=== PATIENT | female | born 1950 | race Caucasian/White ===

== ENCOUNTER 2022-10-31 11:54 | Emergency (ER) | payer OTHER ==
--- OUTSIDE RECORDS SUMMARY | 2022-10-31 11:56 | XMS REPORT | Continuity of Care Document ---
:1950 Author Organization [facility] t Address [address] [address] [place] [address] Care Team Providers Name Role Phone Rosemarie Roland MD Primary Care Physician [phone] HANK HORNE Attending Clinician Unavailable ROSEMARIE ROLAND Attending Clinician Unavailable DENNY TINOCO Attending Clinician Unavailable [id number] Attending Clinician Unavailable Hank Mao Attending Clinician Payers Payer Name Policy Type Policy Number Effective Date Expiration Date S lawanda [employer] 16 [id number] 2021 00:00:00 HMO-POS [employer]ET[employer] 2 [id number] 2020 00:00:00 MEDICARE-PART B 5 [id number] 2020 00:00:00 Problems Condition Condition Condition Status Onset Resolution Last Treating Co mments Source Name Details Category Date Date Treatment Clinician Date Prediabete Prediabete Disease Active Megan hernandez s - s - 10-29 Seybold Unchanged Unchanged 00:00: 00 Essential Essential Disease Active Doc durbin hypertensi hypertensi 12-28 Se ybold on - on - 00:00: Controlled Controlled 00 Hypothyroi Hypothyroi Disease Active Megan hernandez dism dism 12-28 Seybold 00:00: 00 Allergies, Adverse Reactions, Alerts This patient has no known allergies or adverse reactions. Social History Social Habit Start Date Stop Date Quantity Comments Source Exposure to Not sure Radha dangelo SARS-CoV-2 (event) Tobacco use and 2020-12-28 2020-12-28 Smokeless tobacco Garry musa Seybold exposure 00:00:00 00:00:00 non-user Sex [birth year] Radha gee 00:00:00 00:00:00 Smoking Status Start Date Stop Date Source Never smoked tobacco Radha Talamantes old Medications Ordered Filled Start Stop Current Ordering Indication Dosage Frequency Signature Comments Components Source Medication Medication Date Date Medication? Clinician (SIG) Name Name Cholecalcif Yes 25U Take 25 Doc sey daniel 5-02 units by Seybold (Vitamin D) 09:02: mouth 25 MCG 21 daily (1000 UT) oral Tablet Vitamin K Yes 100ug Take 100 Doc sey 100 MCG 5-02 mcg by Seybold oral Tablet 09:02: mouth 21 daily Trazodone Yes [id number] 50mg QD TAKE 1 K elsey HCl 50 MG 2-09 TABLET (50 Seyb old oral Tablet 00:00: MG TOTAL) 00 BY MOUTH NIGHTLY NEEDED FOR SLEEP Cholecalcif 2020-06 Yes 25U Take 25 Doc sey daniel 1-23 units by Seybold (Vitamin D) 10:34: mouth 25 MCG 46 daily (1000 UT) oral Tablet Vitamin K 2020-06 Yes 100ug Take 100 Doc sey 100 MCG 1-23 mcg by Seybold oral Tablet 10:34: mouth 46 daily Miconazole 2020-06 Yes [id number] Apply 1 Radha Nitrate 2 % 0-27 applicatio Se ybold apply 00:00: n externally 00 topically Aero Powd 2 times daily Naftifine 2020-06 Yes [id number] Apply 1 Radha HCl 2 % 0-27 applicatio Seybol d apply 00:00: n externally 00 topically Cream daily Miconazole 2020-06- No [id number] Apply 1 Radha Nitrate 2 % 0-27 05-02 applicatio S eybold apply 00:00: 00:00 n externally 00 :00 topically Aero Powd 2 times daily Naftifine 2020-06- No [id number] Apply 1 Radha HCl 2 % 0-27 05-02 applicatio Seybo ld apply 00:00: 00:00 n externally 00 :00 topically Cream daily Cholecalcif 2020-06 Yes 25U Take 25 Doc sey daniel 0-26 units by Seybold (Vitamin D) 10:05: mouth 25 MCG 05 daily (1000 UT) oral Tablet Vitamin K 2020-06 Yes 100ug Take 100 Doc sey 100 MCG 0-26 mcg by Seybold oral Tablet 10:05: mouth 05 daily Dicyclomine 2020-06 Yes [id number] 10mg Q.25D Take 1 Radha HCl 10 MG 0-26 capsule Seybold oral 00:00: (10 mg Capsule 00 total) by mouth 4 times daily as needed Terbinafine 2020-06 Yes [id number] Apply to Radha HCl does 0-26 affected Seybold not apply 00:00: area 2 Powder 00 times daily for 2-4 weeks Fluconazole 2020-06 Yes [id number] 50mg Take 1 Radha 50 MG oral 0-26 tablet (50 Sey bold Tablet 00:00: mg total) 00 by mouth daily Nitrofurant 2020-06 Yes [id number] 100mg Take 1 Radha oin Monohyd 0-26 capsule Seybo ld Macro 00:00: (100 mg (Macrobid) 00 total) by 100 MG oral mouth 2 Capsule times daily Phenazopyri 2020-06 Yes [id number] 200mg Q.[id number] Take 1 Radha dine HCl 0-26 [id number] tablet Sey bold 200 MG oral 00:00: 3D (200 mg Tablet 00 total) by mouth 3 times daily as needed for pain Dicyclomine 2020-06 Yes [id number] 10mg Q.25D Take 1 Radha HCl 10 MG 0-26 capsule Seybold oral 00:00: (10 mg Capsule 00 total) by mouth 4 times daily as needed Terbinafine 2020-06 Yes [id number] Apply to Radha HCl does 0-26 affected Seybold not apply 00:00: area 2 Powder 00 times daily for 2-4 weeks Fluconazole 2020-06 Yes [id number] 50mg Take 1 Radha 50 MG oral 0-26 tablet (50 Sey bold Tablet 00:00: mg total) 00 by mouth daily Nitrofurant 2020-06 Yes [id number] 100mg Take 1 Radha oin Monohyd 0-26 capsule Seybo ld Macro 00:00: (100 mg (Macrobid) 00 total) by 100 MG oral mouth 2 Capsule times daily Phenazopyri 2020-06 Yes [id number] 200mg Q.[id number] Take 1 Radha dine HCl 0-26 [id number] tablet Sey bold 200 MG oral 00:00: 3D (200 mg Tablet 00 total) by mouth 3 times daily as needed for pain Dicyclomine 2020-06 Yes [id number] 10mg Q.25D Take 1 Radha HCl 10 MG 0-26 capsule Seybold oral 00:00: (10 mg Capsule 00 total) by mouth 4 times daily as needed Fluconazole 2020-06 Yes Radha 100 MG oral 0-26 Seybold Tablet 00:00: 00 Phenazopyri 2020-06 Yes Radha dine HCl 0-26 Seybold 100 MG oral 00:00: Tablet 00 Fluconazole 2020-06- No [id number] 50mg Take 1 Radha 50 MG oral 0-26 05-02 tablet (50 Se ybold Tablet 00:00: 00:00 mg total) 00 :00 by mouth daily Nitrofurant 2020-06- No [id number] 100mg Take 1 Radha oin Monohyd 0-26 05-02 capsule Seyb old Macro 00:00: 00:00 (100 mg (Macrobid) 00 :00 total) by 100 MG oral mouth 2 Capsule times daily Phenazopyri 2020-06- No [id number] 200mg Q.[id number] Take 1 Radha dine HCl 0-26 05-02 [id number] tablet Se ybold 200 MG oral 00:00: 00:00 3D (200 mg Tablet 00 :00 total) by mouth 3 times daily as needed for pain Fluconazole 2020-06- No Kelse y 100 MG oral 0-26 05-02 Seybold Tablet 00:00: 00:00 00 :00 Phenazopyri 2020-06- No Kelse y dine HCl 0-26 05-02 Seybold 100 MG oral 00:00: 00:00 Tablet 00 :00 Terbinafine 2020-06- No [id number] Apply to Radha HCl does 0-26 05-02 affected Seybol d not apply 00:00: 00:00 area 2 Powder 00 :00 times daily for 2-4 weeks Fluconazole 2020-06- No [id number] 150mg Take 1 Radha 150 MG oral 0-26 10-27 tablet Seybo ld Tablet 00:00: 04:59 (150 mg 00 :00 total) by mouth once for 1 dose Trazodone 2020-06 Yes [id number] 50mg QD Take 1 K elsey HCl 50 MG 0-15 tablet (50 Seyb old oral Tablet 00:00: mg total) 00 by mouth nightly as needed for sleep Trazodone 2020-06 Yes [id number] 50mg QD Take 1 K elsey HCl 50 MG 0-15 tablet (50 Seyb old oral Tablet 00:00: mg total) 00 by mouth nightly as needed for sleep Nystatin 2020- No [id number] Apply to Radha [id number] 8-20 10- affected Seybold UNIT/GM 00:00: 00:00 are twice apply 00 :00 a day externally Cream Ipratropium Yes 1{puff} Q4H Inhale 1 Radha -Albuterol 7-19 puff into Seyb old (Combivent 00:00: the lungs Respimat) 00 every 4 20-100 hours as MCG/ACT needed for inhalation shortness aerosol of breath inhaler Ipratropium Yes 1{puff} Q4H Inhale 1 Radha -Albuterol 7-19 puff into Seyb old (Combivent 00:00: the lungs Respimat) 00 every 4 20-100 hours as MCG/ACT needed for inhalation shortness aerosol of breath inhaler Ipratropium 2021- No 1{puff} Q4H Inhale 1 Radha -Albuterol 7-19 05-02 puff into Sey bold (Combivent 00:00: 00:00 the lungs Respimat) 00 :00 every 4 20-100 hours as MCG/ACT needed for inhalation shortness aerosol of breath inhaler Amlodipine Yes [id number] 5mg Take 1 K elsey Besylate 5 7- tablet (5 Seyb old MG oral 00:00: mg total) Tablet 00 by mouth daily hydrOXYzine Yes [id number] 25mg Q.[id number] Take 1 Radha HCl 25 MG 7- [id number] tablet (25 Seybold oral Tablet 00:00: 3D mg total) 00 by mouth 3 times daily as needed for itching Liothyronin 0 Yes [id number] 5ug Take 1 Radha e Sodium 5 7-01 tablet (5 Seyb old MCG oral 00:00: mcg total) Tablet 00 by mouth daily Levothyroxi 2020-0 Yes [id number] 125ug Take 1 Radha ne Sodium 7-01 tablet Seybold (Synthroid) 00:00: (125 mcg 125 MCG 00 total) by oral Tablet mouth daily Temazepam 2020-0 Yes [id number] 7.5mg QD Take 1 Radha 7.5 MG oral 7-01 capsule Seybo ld Capsule 00:00: (7.5 mg 00 total) by mouth nightly as needed for sleep Amlodipine 0 Yes [id number] 5mg Take 1 K elsey Besylate 5 7-01 tablet (5 Seyb old MG oral 00:00: mg total) Tablet 00 by mouth daily hydrOXYzine Yes [id number] 25mg Q.[id number] Take 1 Radha HCl 25 MG 7-01 [id number] tablet (25 Seybold oral Tablet 00:00: 3D mg total) 00 by mouth 3 times daily as needed for itching Liothyronin Yes [id number] 5ug Take 1 Radha e Sodium 5 7-01 tablet (5 Seyb old MCG oral 00:00: mcg total) Tablet 00 by mouth daily Levothyroxi 2020-0 Yes [id number] 125ug Take 1 Radha ne Sodium 7-01 tablet Seybold (Synthroid) 00:00: (125 mcg 125 MCG 00 total) by oral Tablet mouth daily Temazepam 2020-0 Yes [id number] 7.5mg QD Take 1 Radha 7.5 MG oral 7-01 capsule Seybo ld Capsule 00:00: (7.5 mg 00 total) by mouth nightly as needed for sleep Liothyronin 0 Yes [id number] 5ug Take 1 Radha e Sodium 5 7-01 tablet (5 Seyb old MCG oral 00:00: mcg total) Tablet 00 by mouth daily Levothyroxi 2020-0 Yes [id number] 125ug Take 1 Radha ne Sodium 7-01 tablet Seybold (Synthroid) 00:00: (125 mcg 125 MCG 00 total) by oral Tablet mouth daily Amlodipine 2021- No [id number] 5mg Take 1 Radha Besylate 5 12-28 tablet (5 Sey bold MG oral 00:00: 00:00 mg total) Tablet 00 :00 by mouth daily hydrOXYzine 2021- No [id number] 25mg Q.[id number] Take 1 Radha HCl 25 MG 12-28 [id number] tablet (25 Seybold oral Tablet 00:00: 00:00 3D mg total) 00 :00 by mouth 3 times daily as needed for itching Temazepam 2021- No [id number] 7.5mg QD Take 1 Radha 7.5 MG oral 12-28 capsule Seyb old Capsule 00:00: 00:00 (7.5 mg 00 :00 total) by mouth nightly as needed for sleep Immunizations Ordered Immunization Filled Immunization Date Status Commen Source Name Name Pneumococcal Vaccine, 2018-06-17 Completed Doc sey Seybold Polysaccharide 00:00:00 Pneumococcal Vaccine, 2018-06-17 Completed Doc sey Seybold Polysaccharide 00:00:00 Pneumococcal Vaccine, 2018-06-17 Completed Doc sey Seybold Polysaccharide 00:00:00 Tdap- (Boostrix, 2017-12-25 Completed Radha Rodriguez eybomaria [place] carmen Adacel) 00:00:00 Tdap- (Boostrix, 2017-12-25 Completed Radha Rodriguez eybold Adacel) 00:00:00 Tdap- (Boostrix, 2017-12-25 Completed Radha Rodriguez eybomaria [place] carmen Adacel) 00:00:00 Vital Signs Vital Name Observation Time Observation Value Comments Source Systolic blood pressure 2021-10-29 13:57:00 138 mm[Hg] Radha Seybold Diastolic blood 2021-10-29 13:57:00 64 mm[Hg] Kelse y Seybold pressure Heart rate 2021-10-29 13:57:00 60 /min Radha S eybomaria [place] carmen Body temperature 2021-10-29 13:57:00 36.17 Jacy Krys ey Seybold Respiratory rate 2021-10-29 13:57:00 14 /min Krys ey Seybold Body height 2021-10-29 13:57:00 167.6 cm Radha Rodriguez eybold Body weight 2021-10-29 13:57:00 75.751 kg Radha Rodriguez eybold BMI 2021-10-29 13:57:00 26.95 kg/m2 Radha Rodriguez eybold Heart rate 2021-05-22 16:29:00 68 /min Radha Rodriguez eybold Body temperature 2021-05-22 16:29:00 36.28 Jacy Krys ey Seybold Respiratory rate 2021-05-22 16:29:00 14 /min Krys ey Seybold Body height 2021-05-22 16:29:00 167.6 cm Radha Rodriguez eybold Body weight 2021-05-22 16:29:00 80.74 kg Radha Rodriguez eybold BMI 2021-05-22 16:29:00 28.73 kg/m2 Radha Rodriguez eybold Systolic blood pressure 2021-05-22 16:29:00 164 mm[Hg] Radha Seybold Diastolic blood 2021-05-22 16:29:00 70 mm[Hg] Kelse y Seybold pressure Systolic blood pressure 2021-04-24 15:04:00 142 mm[Hg] Radha Seybold Diastolic blood 2021-04-24 15:04:00 79 mm[Hg] Kelse y Seybold pressure Heart rate 2021-04-24 15:04:00 62 /min Radha Rodriguez eybold Body temperature 2021-04-24 15:04:00 36.83 Jacy Krys ey Seybold Respiratory rate 2021-04-24 15:04:00 14 /min Krys ey Seybold Body height 2021-04-24 15:04:00 167.6 cm Radha Rodriguez eybold Body weight 2021-04-24 15:04:00 82.645 kg Radha Rodriguez eybold BMI 2021-04-24 15:04:00 29.41 kg/m2 Radha Rodriguez eybold Procedures Procedure Date / Time Performed Performing Clinician Sourc e URINALYSIS NONAUTO W/O 2021-04-24 15:23:00 Hank Horne y Seybold SCOPE Encounters Start End Encounter Admission Attending Care Care Encounter Source Date/Time Date/Time Type Type Clinicians Facility Department ID 2022-11-05 2022-11-05 Outpatient COLEEN RADHA DOTSON [id number] Radha 10:30:00 10:30:00 HANK Seybol d 2022-10-25 2022-10-25 Outpatient RADHA ROLAND [id number] Radha 00:00:00 00:00:00 ROSEMARIE Seybol d 2022-10-21 2022-10-21 Outpatient RADHA ROLAND [id number] Radha 00:00:00 00:00:00 ROSEMARIE Seybol d 2022-10-21 2022-10-21 Outpatient RADHA HORNE [id number] Radha 00:00:00 00:00:00 HANK Seybol d 2022-09-03 2022-09-03 Outpatient RADHA HORNE [id number] Radha 00:00:00 00:00:00 HANK Seybol d 2022-07-03 2022-07-03 Outpatient RADHA HORNE [id number] Radha 00:00:00 00:00:00 HANK Seybol d 2022-03-25 2022-03-25 Outpatient RADHA HORNE [id number] Radha 00:00:00 00:00:00 HANK Seybol d 2021-12-24 2021-12-24 Outpatient RADHA TINOCO [id number] Radha 10:45:00 10:45:00 DENNY Seybol d 2021-10-30 2021-10-30 Outpatient RADHA HORNE [id number] Radha 00:00:00 00:00:00 HANK Seybol d 2021-10-29 2021-10-29 Outpatient LAB90 RADHA DOTSON [id number] Radha 10:15:00 10:15:00 Seybol d 2021-10-29 2021-10-29 Office Reg Horne [id number] Radha 09:00:00 10:00:00 Visit Hank Rodas [id number] Se marlen [id number] 2021-08-08 2021-08-08 Outpatient RADHA ROLAND [id number] Radha 00:00:00 00:00:00 ROSEMARIEMADDY Talamantesol d 2021-05-22 2021-05-22 Outpatient LAB90 RADHA DOTSON [id number] Radha 11:15:00 11:15:00 Seybol d 2021-05-22 2021-05-22 Office Reg Horne [id number] Radha 10:30:00 11:00:00 Visit Hankrandi Rodas [id number] Se marlen [id number] 2021-04-25 2021-04-25 Outpatient RADHA ROLAND [id number] Radha 00:00:00 00:00:00 ROSEMARIE Talamantesol loreto 2021-04-24 2021-04-24 Office Reg Horne [id number] Radha 09:55:03 10:25:03 Visit Hank Rodas [id number] Se ritaoliver [id number] 2021-02-15 2021-02-15 Outpatient RADHA ROLAND [id number] Radha 00:00:00 00:00:00 ROSEMARIE Talamantesol loreto 2021-01-04 2021-01-04 Outpatient RADHA ROLAND [id number] Radha 14:00:00 14:00:00 ROSEMARIE dangelo Results Test Description Test Time Test Comments Results Result Comments Source URINALYSIS NONAUTO W/O SCOPE 2021-04-24 15:23:00 Test Item Value Reference Range Interpretation Comme nts UD KETONES (test code = neg 5-160 927843) UD GLUCOSE (test code = neg 100-2000 948277) UD PROTEIN (test code = trace Trace - 2000 mg/dL 217694) UD LEUKOCYTES (test code = LG Trace - Large @ 2 581307) min. UD NITRITE (test code = NEG Neg. - Pos. @ 60 287942) sec. UD UROBILINOGEN (test code = 0.2 mg/dL 0.2-8 228446) UD PH (test code = 017172) See_Comment [Automated message] The system which ge nerated this result tra nsmitted reference range : 5.0 - 8.5 @ 60 sec.. The reference range was not used to interpr et this result as normal/abnormal . UD BLOOD (test code = 831931) MOD Neg. - Large @ 60 sec. UD SPECIFIC GRAVITY (test See_Comment [ Automated message] The code = 971132) system which generated this result tra nsmitted reference range : 1.000 - 1.030 @ 45 sec. . The reference range was not used to interpr et this result as normal/abnormal . UD BILIRUBIN (test code = NEG Neg. - Large @ 45 048616) sec. Lab Interpretation (test code Abnormal = 59989-9) Radha Mcbride
[2022-10-31] MEDS ORDERED: BACI/NEOMYCIN/POLY OINT 15GM TOP ONE (12:45)
[2022-10-31] MEDS ORDERED: MORPHINE 2 MG/ML SYR ONE ×2 (12:45→14:16)
[2022-10-31] MEDS ORDERED: KETOROLAC 30 MG/ML INJ ONE (12:45)
[2022-10-31] MEDS ORDERED: ONDANSETRON 4 MG/2 ML VIAL ONE (12:46)
[2022-10-31] MEDS ORDERED: TETANUS & DIPHTHERIA TOX,ADULT 0.5 ML VIAL ONE (12:46)
--- NOTE | 2022-10-31 13:26 | RAD REPORT ---
EXAM DESCRIPTION: CT - Head C Spine Cap Wo Con - 10/31/2022 12:56 pm CLINICAL HISTORY: Trauma, head and neck injury. Chest, abdomen and pelvis pain. PAIN COMPARISON: No comparisons TECHNIQUE: CT head without contrast. CT cervical spine without contrast with coronal and sagittal reformatted images. CT chest, abdomen and pelvis without contrast with coronal and sagittal reformatted images of the [facility] [place]. All CT scans are performed using dose optimization technique as appropriate and may include automated exposure control or mA/KV adjustment according to patient size. FINDINGS: CT HEAD WITHOUT CONTRAST: No intracranial hemorrhage, hydrocephalus or extra-axial fluid collection. Moderate brain atrophy not ed. No areas of brain edema or midline shift. The paranasal sinuses and mastoids are clear. The calvarium is intact. CT CERVICAL SPINE WITHOUT CONTRAST: No fracture or subluxation. The prevertebral soft tissues are normal in thickness. CT CHEST, ABDOMEN, PELVIS WITHOUT CONTRAST: NOTE: Lack of contrast is a significant limitation in the assessment of trauma related findings. Spec ifically, solid organ, vascular and bowel evaluation is significantly limited. The lungs are clear.No pneumothorax or pericardial/pleural fluid. Postsurgical changes are present ab out the stomach. Cholecystectomy clips. No evidence of intra-abdominal visceral injury, free fluid or free air is seen within the above detai led limitations. Right kidney is located in the pelvis, normal variant anatomy. Mild sigmoid divertic ulosis without diverticulitis. No concerning pelvic findings. No fractures. IMPRESSION: Negative for acute traumatic findings within the above detailed limitations.
--- NOTE | 2022-10-31 13:32 | RAD REPORT ---
EXAM DESCRIPTION: RAD - Wrist Right 3 View - 10/31/2022 1:24 pm CLINICAL HISTORY: PAIN Pain COMPARISON: <Comparisons> FINDINGS: Diffuse osteopenia is seen. Mild soft tissue swelling is seen along the dorsum of the wris t. No acute fracture evident.
--- NOTE | 2022-10-31 13:33 | RAD REPORT ---
EXAM DESCRIPTION: RAD - Ankle Right 3 View - 10/31/2022 1:24 pm CLINICAL HISTORY: PAIN COMPARISON: <Comparisons> FINDINGS: There is a large posterior calcaneal spur. Mild soft tissue swelling is seen particularly lateral malleolus where there may be a small avulsion fracture. No dislocation.
--- NOTE | 2022-10-31 13:34 | RAD REPORT ---
EXAM DESCRIPTION: RAD - Foot Left 3 View - 10/31/2022 1:24 pm CLINICAL HISTORY: PAIN COMPARISON: <Comparisons> FINDINGS: Examination is limited by patient positioning. Small calcaneal spurs. Diffuse osteopenia. No gross fracture appreciated.
--- NOTE | 2022-10-31 13:35 | RAD REPORT ---
EXAM DESCRIPTION: RAD - Knee Left 3 View - 10/31/2022 1:24 pm CLINICAL HISTORY: PAIN COMPARISON: No comparisons FINDINGS: Diffuse osteopenia is seen. Moderate joint effusion. Linear defect in the lateral aspect o f the patella likely patella fracture.
--- NOTE | 2022-10-31 13:37 | RAD REPORT ---
EXAM DESCRIPTION: RAD - Pelvis - 10/31/2022 1:24 pm CLINICAL HISTORY: PAIN COMPARISON: <Comparisons> FINDINGS: Diffuse osteopenia is seen. No fracture, dislocation or AVN pattern.
[2022-10-31 13:50] LABS: Absolute Lymphocytes (CBC) 2.2 K/uL (0.7-4.9); Hematocrit 39.8 % (36.0-45.0); Lymphocytes % 25.6 % (15.3-44.8); MCV 78.7 fL (80-100); MPV 8.4 fL (7.6-11.3); RBC Red Blood Cell Count 5.06 M/uL (3.86-4.86)
--- NOTE | 2022-10-31 13:56 | EDPHYS ---
Physician Documentation [facility] Name: Mayuri Barkley Age: 72 yrs Sex: Female : 1950 Arrival Date: 10/31/2022 Time: 11:54 Bed 7 Private MD: ED Physician Cayetano Salazar HPI: 10/31 13:30 This 72 yrs old Female presents to ER via EMS with complaints of Fall Injury. kelsie 13:30 Details of fall: The patient fell from an upright position, while walking. Onset: The kelsie symptoms/episode began/occurred just prior to arrival. Associated injuries: The patient sustained injury to the head, abrasion, contusion. Severity of symptoms: At their worst the symptoms were mild. Historical: - Allergies: 12:22 No Known Allergies; ko1 - PMHx: 12:23 Hypothyroidism; ko1 - Immunization history:: Adult Immunizations up to date. - Social history:: Smoking status: Patient denies any tobacco usage or history of. ROS: 13:35 Constitutional: Negative for fever, chills, and weight loss, Eyes: Negative for injury, kelsie pain, redness, and discharge, ENT: Negative for injury, pain, and discharge, Neck: Negative for injury, pain, and swelling, Cardiovascular: Negative for chest pain, palpitations, and edema, Respiratory: Negative for shortness of breath, cough, wheezing, and pleuritic chest pain, Abdomen/GI: Negative for abdominal pain, nausea, vomiting, diarrhea, and constipation, Back: Negative for injury and pain, : Negative for injury, bleeding, discharge, and swelling, Skin: Negative for injury, rash, and discoloration, Neuro: Negative for headache, weakness, numbness, tingling, and seizure, Psych: Negative for depression, anxiety, suicide ideation, homicidal ideation, and hallucinations, Allergy/Immunology: Negative for hives, rash, and allergies, Endocrine: Negative for neck swelling, polydipsia, polyuria, polyphagia, and marked weight changes, Hematologic/Lymphatic: Negative for swollen nodes, abnormal bleeding, and unusual bruising. 13:35 MS/extremity: Positive for decreased range of motion, pain, of the right leg and left leg. Exam: 13:35 Constitutional: This is a well developed, well nourished patient who is awake, alert, kelsie and in no acute distress. Head/Face: Normocephalic, atraumatic. Eyes: Pupils equal round and reactive to light, extra-ocular motions intact. Lids and lashes normal. Conjunctiva and sclera are non-icteric and not injected. Cornea within normal limits. Periorbital areas with no swelling, redness, or edema. ENT: Nares patent. No nasal discharge, no septal abnormalities noted. Tympanic membranes are normal and external auditory canals are clear. Oropharynx with no redness, swelling, or masses, exudates, or evidence of obstruction, uvula midline. Mucous membranes moist. Neck: Trachea midline, no thyromegaly or masses palpated, and no cervical lymphadenopathy. Supple, full range of motion without nuchal rigidity, or vertebral point tenderness. No Meningismus. Chest/axilla: Normal chest wall appearance and motion. Nontender with no deformity. No lesions are appreciated. Cardiovascular: Regular rate and rhythm with a normal S1 and S2. No gallops, murmurs, or rubs. Normal PMI, no JVD. No pulse deficits. Respiratory: Lungs have equal breath sounds bilaterally, clear to auscultation and percussion. No rales, rhonchi or wheezes noted. No increased work of breathing, no retractions or nasal flaring. Abdomen/GI: Soft, non-tender, with normal bowel sounds. No distension or tympany. No guarding or rebound. No evidence of tenderness throughout. Back: No spinal tenderness. No costovertebral tenderness. Full range of motion. Skin: Warm, dry with normal turgor. Normal color with no rashes, no lesions, and no evidence of cellulitis. Neuro: Awake and alert, GCS 15, oriented to person, place, time, and situation. Cranial nerves II-XII grossly intact. Motor strength 5/5 in all extremities. Sensory grossly intact. Cerebellar exam normal. Normal gait. Psych: Awake, alert, with orientation to person, place and time. Behavior, mood, and affect are within normal limits. 13:35 Musculoskeletal/extremity: Extremities: grossly normal except: noted in the left knee: decreased ROM, pain, noted in the right ankle: decreased ROM, pain. Vital Signs: 12:19 BP 194 / 75; Pulse 65; Resp 18; Temp 98; Pulse Ox 100% ; ko1 12:38 BP 191 / 73; Pulse 55; Resp 18; Pulse Ox 100% on R/A; ld1 13:00 BP 178 / 82; Pulse 68; Resp 18; Pulse Ox 99% ; ko1 [place] Coma Score: 13:37 Eye Response: spontaneous(4). Motor Response: obeys commands(6). Verbal Response: kelsie oriented(5). Total: 15. 13:37 Eye Response: spontaneous(4). Motor Response: obeys commands(6). Verbal Response: kelsie oriented(5). Total: 15. MDM: 12:21 Patient medically screened. kelsie 13:37 Differential diagnosis: dislocation, closed fracture, contusion, abrasion, tendonitis, kelsie fracture, sprain, arthritis. Differential diagnosis: abrasion, closed head injury, contusion, fracture, sprain, strain. Data reviewed: vital signs, nurses notes, lab test result(s), CBC, electrolytes, hepatic panel, radiologic studies. Consideration of Admission/Observation Escalation of care including admission/observation considered. Independent interpretation of the following test(s) in the Emergency Department X-Ray: My interpretation is multiple xrays. Test considered but Not performed: CT: no ct of joints. Care significantly affected by the following chronic conditions: hypothyroidism. Counseling: I had a detailed discussion with the patient and/or guardian regarding: the historical points, exam findings, and any diagnostic results supporting the discharge/admit diagnosis, lab results, radiology results, the need for outpatient follow up, for definitive care, a family practitioner, a orthopedic surgeon. 10/31 12:32 Order name: CBC with Diff; Complete Time: 13:54 [facility] 10/31 12:32 Order name: Comprehensive Metabolic Panel [facility] 10/31 12:32 Order name: CT Traumagram (Head C Spine CAP wo con); Complete Time: 13:29 [facility] 10/31 12:32 Order name: Wrist Right 3 View XRAY; Complete Time: 13:54 [facility] 10/31 12:32 Order name: Knee Left 3 View XRAY; Complete Time: 13:54 [facility] 10/31 12:32 Order name: Foot Left 3 View XRAY; Complete Time: 13:54 [facility] 10/31 12:32 Order name: Ankle Right 3 View XRAY; Complete Time: 13:54 [facility] 10/31 12:32 Order name: Pelvis XRAY; Complete Time: 13:54 [facility] 10/31 12:35 Order name: Ice pack; Complete Time: 12:40 kelsie Administered Medications: 12:50 Drug: Tetanus Toxoid,Adsorbed IM 0.5 ml {Manager Of Maintenance: [place]. Exp: 12/08/2023. ko1 Lot #: [id number]. } Route: IM; Site: left deltoid; 13:47 Drug: Qgxzyxcu-Wqlzjobybb-Eiijbivdq Topical Ointment 1 application Route: Topical; ko1 Site: affected area; 13:48 Drug: Ketorolac IVP 30 mg Route: IVP; Site: right antecubital; ko1 13:48 Drug: Ondansetron IVP 4 mg Route: IVP; Site: right antecubital; ko1 13:48 Drug: morphine IVP or IV 2 mg Route: IVP; Infused Over: 4 mins; Site: right antecubital;ko1 14:09 Drug: morphine IVP or IV 2 mg Route: IVP; Infused Over: 4 mins; Site: right antecubital;ko1 14:24 Drug: Famotidine IVP 20 mg Route: IVP; Site: right antecubital; ld1 Disposition Summary: 10/31/22 13:55 Discharge Ordered Location: Home kelsie Problem: new kelsie Symptoms: have improved kelsie Condition: Stable kelsie Diagnosis - Fall on same level, unspecified kelsie - Displaced fracture of lateral malleolus of right fibula - avulsion kelsie - Fracture of patella kelsie - Unspecified injury of head, initial encounter kelsie - Abrasion of nose - Bridge kelsie Followup: kelsie - With: Private Physician - When: 2 - 3 days - Reason: Recheck today's complaints, Continuance of care, Re-evaluation by your physician Followup: kelsie - With: - When: 2 - 3 days - Reason: Recheck today's complaints, Re-evaluation by your physician Discharge Instructions: - Discharge Summary Sheet kelsie - Nondisplaced Fibular Ankle Fracture Treated With Immobilization kelsie - Head Injury, Adult kelsie - Fall Prevention in the Home, Adult kelsie - Patellar Fracture, Adult kelsie - Head Injury, Adult, [id number] kelsie Forms: - Medication Reconciliation Form kelsie - Thank You Letter kelsie - Antibiotic Education kelsie - Prescription Opioid Use kelsie Prescriptions: - acetaminophen-codeine 300-30 mg Oral tablet - take 2 tablet by ORAL route every 6 hours as needed for pain; 24 tablet; kelsie Refills: 0, Product Selection Permitted - Valium 2 mg Oral Tablet - take 1 tablet by ORAL route every 8 hours As needed; 20 tablet; Refills: 0, kelsie Product Selection Permitted - Diclofenac Sodium 75 mg Oral tablet,delayed release (DR/EC) - take 1 tablet by ORAL route 2 times per day; 14 tablet; Refills: 0, Product kelsie Selection Permitted Signatures: Dispatcher [employer] Cayetano Piña MD MD cha Sims, Lauren RN RN ld1 Jordana Resendiz RN RN ko1
--- NOTE | 2022-10-31 13:56 | ER ---
Nurse's Notes [facility] Name: Mayuri Barkley Age: 72 yrs Sex: Female : 1950 Arrival Date: 10/31/2022 Time: 11:54 Bed 7 Private MD: Diagnosis: Fall on same level, unspecified;Displaced fracture of lateral malleolus of right fibula-avulsion;Fracture of patella;Unspecified injury of head, initial encounter;Abrasion of nose-Bridge Presentation: 10/31 12:19 Chief complaint: EMS states: patient fell when coming out of the eye dr office, no loc, ko1 no blood thinners. Complains of pain to right ankle, left foot and right arm. Coronavirus screen: At this time, the client does not indicate any symptoms associated with coronavirus-19. Ebola Screen: No symptoms or risks identified at this time. Initial Sepsis Screen: Does the patient meet any 2 criteria? No. Patient's initial sepsis screen is negative. Does the patient have a suspected source of infection? No. Patient's initial sepsis screen is negative. Risk Assessment: Do you want to hurt yourself or someone else? Patient reports no desire to harm self or others. Onset of symptoms. 12:19 Method Of Arrival: EMS: [facility] ko1 12:19 Acuity: SANDY 3 ko1 Triage Assessment: 12:23 General: Appears uncomfortable, Behavior is calm, cooperative, appropriate for age. ko1 Pain: Complains of pain in right ankle. Historical: - Allergies: 12:22 No Known Allergies; ko1 - PMHx: 12:23 Hypothyroidism; ko1 - Immunization history:: Adult Immunizations up to date. - Social history:: Smoking status: Patient denies any tobacco usage or history of. Screenin:00 [facility] ED Fall Risk Assessment (Adult) History of falling in the last 3 months, ko1 including since admission Yes- single mechanical fall (1 pt) Confusion or Disorientation No (0 pts) Intoxicated or Sedated No (0 pts) Impaired Gait No (0 pts) Mobility Assist Device Used No (0 pt) Altered Elimination No (0 pt) Score/Fall Risk Level 0 - 2 = Low Risk Oriented to surroundings, Maintained a safe environment, Educated pt \T\ family on fall prevention, incl call for assistance when getting out of bed, Assessed \T\ reinforced patient's understanding of fall precautions, Provided non-skid footwear, Hourly rounding (assess needs \T\ fall precautionary measures) done, Used ambulatory aids as needed (educated on \T\ assisted with), Used gait belt as appropriate. Abuse screen: Denies threats or abuse. Denies injuries from another. Nutritional screening: No deficits noted. Tuberculosis screening: No symptoms or risk factors identified. Assessment: 13:00 General: Appears distressed, uncomfortable, Behavior is cooperative, appropriate for ko1 age, anxious. Pain: Complains of pain in left knee and left leg and right leg and right ankle. Neuro: No deficits noted. Cardiovascular: No deficits noted. Respiratory: No deficits noted. GI: No deficits noted. : No deficits noted. EENT: No deficits noted. Derm: No deficits noted. Musculoskeletal: Circulation, motion, and sensation intact. Injury Description: Abrasion sustained to left knee. Vital Signs: 12:19 BP 194 / 75; Pulse 65; Resp 18; Temp 98; Pulse Ox 100% ; ko1 12:38 BP 191 / 73; Pulse 55; Resp 18; Pulse Ox 100% on R/A; ld1 13:00 BP 178 / 82; Pulse 68; Resp 18; Pulse Ox 99% ; ko1 [place] Coma Score: 13:37 Eye Response: spontaneous(4). Motor Response: obeys commands(6). Verbal Response: kelsie oriented(5). Total: 15. 13:37 Eye Response: spontaneous(4). Motor Response: obeys commands(6). Verbal Response: kelsie oriented(5). Total: 15. ED Course: 12:07 Patient arrived in ED. aa5 12:21 Cayetano Salazar MD is Attending Physician. kelsie 12:22 Triage completed. ko1 12:23 Arm band placed on left wrist. Patient placed in an exam room, Patient notified of wait ko1 time. 12:34 Jordana Resendiz, JUSTIN is Primary Nurse. ko1 12:58 CT Traumagram (Head C Spine CAP wo con) In Process Unspecified. EDMS 13:00 Patient has correct armband on for positive identification. Fall risk band placed. Bed ko1 in low position. Call light in reach. Side rails up X2. environmental monitoring specialist on. Pulse ox on. NIBP on. Door closed. Noise minimized. Lights dimmed. Warm blanket given. Pillow given. 13:00 No provider procedures requiring assistance completed. ko1 13:26 Wrist Right 3 View XRAY In Process Unspecified. EDMS 13:26 Knee Left 3 View XRAY In Process Unspecified. EDMS 13:26 Foot Left 3 View XRAY In Process Unspecified. EDMS 13:26 Ankle Right 3 View XRAY In Process Unspecified. EDMS 13:26 Pelvis XRAY In Process Unspecified. EDMS 13:45 Inserted saline lock: 20 gauge in right antecubital area, using aseptic technique. ko1 Blood collected. 13:48 CBC with Diff Sent. ko1 13:48 Comprehensive Metabolic Panel Sent. ko1 13:55 Coleman Pierre MD is Referral Physician. kelsie 15:15 IV discontinued, intact, bleeding controlled, No redness/swelling at site. Pressure ko1 dressing applied. 15:15 Crutch training done. Knee immobilizer applied on left knee. right walking boot. ko1 Administered Medications: 12:50 Drug: Tetanus Toxoid,Adsorbed IM 0.5 ml {Dairy Inspector: [place]. Exp: 12/08/2023. ko1 Lot #: [id number]. } Route: IM; Site: left deltoid; 13:47 Drug: Xvrbpqji-Egyamrxejt-Kxpnqfjxt Topical Ointment 1 application Route: Topical; ko1 Site: affected area; 13:48 Drug: Ketorolac IVP 30 mg Route: IVP; Site: right antecubital; ko1 13:48 Drug: Ondansetron IVP 4 mg Route: IVP; Site: right antecubital; ko1 13:48 Drug: morphine IVP or IV 2 mg Route: IVP; Infused Over: 4 mins; Site: right antecubital;ko1 14:09 Drug: morphine IVP or IV 2 mg Route: IVP; Infused Over: 4 mins; Site: right antecubital;ko1 14:24 Drug: Famotidine IVP 20 mg Route: IVP; Site: right antecubital; ld1 Medication: 15:15 Vaccine Information Statement (VIS) provided today. Questions and/or concerns ko1 addressed. VIS edition date: October 31, 2022. Outcome: 13:55 Discharge ordered by . kelsie 15:15 Discharged to home via wheelchair, with crutches, with family. ko1 15:15 Condition: stable 15:15 Discharge instructions given to patient, family, Instructed on discharge instructions, follow up and referral plans. medication usage, crutch walking, Demonstrated understanding of instructions, follow-up care, medications, crutch walking, Prescriptions given X 3. 15:17 Patient left the ED. ko1 Signatures: Dispatcher [employer] EDCayetano Momin MD MD cha Calderon, Audri, RN RN aa5 Mariza Brown RN RN ld1 Jordana Resendiz RN RN ko1
[2022-10-31 14:06] LABS: Albumin 3.3 g/dL (3.4-5.0); Bilirubin Total 0.3 mg/dL (0.2-1.0); Potassium 3.9 mEq/L (3.5-5.1); Protein, Total 6.6 g/dL (6.4-8.2)
[2022-10-31] MEDS ORDERED: FAMOTIDINE 20 MG/2 ML VIAL IV ONE (14:30)
[2022-10-31 15:49] VITALS: TEMP 98
[2022-10-31 16:00] VITALS: BP 178/82; O2SAT 99
== END 2022-10-31 15:17 | disposition home or self-care (01) ==
LOC: ER 11:54
DX: S82.002A Unspecified fracture of left patella, initial encounter for closed fracture (principal); S82.61XA Displaced fracture of lateral malleolus of right fibula, initial encounter for closed fracture; S00.31XA Abrasion of nose, initial encounter; S09.90XA Unspecified injury of head, initial encounter; W18.30XA Fall on same level, unspecified, initial encounter; Z23 Encounter for immunization
CPT/HCPCS: 85025; 36415; 80053; 70450; 71250; 72125; 72170; 73630; 73110; 73562; 73610; 90471; 90714; 96375; 96374; 99285; J2270 ×2; J2405

== ENCOUNTER 2024-02-25 15:09 | Emergency (ER) | payer MEDICAID ==
--- OUTSIDE RECORDS SUMMARY | 2024-02-25 15:13 | XMS REPORT | Continuity of Care Document ---
Author Name Unknown Address [address] [place] [address] [facility] [address] [place] [address] Care Team Providers Care Track Repair Laborer Name Role Phone Andrew TAM, Rosemarie Harding Primary Care Physician NEO GRIER Attending Clinician Unavailab DENNY Fuentes Attending Clinician Unavailable HANK HORNE Attending Clinician Unavailable DAREN CAPUTO Attending Clinician Unavailable ROSEMARIE MORALES Attending Clinician Unava ilable LAB90 Attending Clinician Unavailable OXANA, MC Attending Clinician Unavailable MD GEOVANI Attending Clinician Unavailab CAITLIN Perez Attending Clinician Unavailable SHAN CARRILLO Attending Clinician Unavailable LAB47 Attending Clinician Unavailable FELICITA ALTMAN Attending Clinician Unavailable HUSSEIN OROZCO Attending Clinician Unavailable TRED47 Attending Clinician Unavailable LENNOX FRANCO Attending Clinician Unavailable Hank Mao Attending Clinician [phone] Payers Payer Name Policy Type Policy Number Effective Date Expirati on Date Source [employer] 16 [id number] 2021 00:00:00 [employer] 2 [id number] 2020 00:00:00 MEDICARE-PART B 5 [id number] 2020 00:00:00 Problems Condition Name Condition Details Condition Category Status Onset Date Resolution Date Last Treatment Date Treating Clinician Comments Source Reactive airway disease without complicati on ([facility]) Reactive airway disease without complicati on ([facility]) Disease Active 02-24 00:00: 00 Radha Talamantesold - Externa l SOB (shortness of breath) SOB (shortness of breath) Disease Active 02-24 00:00: 00 Radha Talamantesold - Externa l Insomnia Insomnia Disease Active 02-24 00:00: 00 Radha Talamantesold - Externa l Immunodefi ciency due to conditions classified elsewhere (multi HCC) Immunodefi ciency due to conditions classified elsewhere (multi HCC) Disease Active 10-16 00:00: 00 Radha Talamantesold - Externa l Malabsorpt ion of iron ([facility]) Malabsorpt ion of iron ([facility]) Disease Active 10-16 00:00: 00 Radha Talamantesold - Externa l 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) Disease Active 09-30 00:00: 00 Radha Mcbride - Externa l Well adult exam Well adult exam Disease Active 12-16 00:00: 00 Radha Mcbride - Externa l White coat syndrome without diagnosis of hypertensi on White coat syndrome without diagnosis of hypertensi on Disease Active 12-16 00:00: 00 Radha Talamantesold - Externa l Seasonal allergic rhinitis due to pollen Seasonal allergic rhinitis due to pollen Disease Active 12-16 00:00: 00 Radha Mcbride - Externa l Vitamin D deficiency Vitamin D deficiency Disease Active 12-16 00:00: 00 Radha Mcbride - Externa l History of iron deficiency anemia History of iron deficiency anemia Disease Active 12-16 00:00: 00 Radha Talamantesold - Externa l History of gastric bypass History of gastric bypass Disease Active 12-16 00:00: 00 Radha Talamantesold - Externa l Overweight (BMI 25.0-29.9) Overweight (BMI 25.0-29.9) Disease Active 12-16 00:00: 00 Radha Mcbride - Externa l Statin intoleranc e Statin intoleranc e Disease Active 2023-0 6-19 00:00: 00 Radha Talamantesold - Externa l Hyperlipid emia Hyperlipid emia Disease Active 10-29 00:00: 00 Radha Talamantesold - Externa l Tachy-ayah y syndrome (multi HCC) Tachy-ayah y syndrome (multi HCC) Disease Active 10-29 00:00: 00 Radha Talamantesold - Externa l Mild major depression Mild major depression Disease Active 10-29 00:00: 00 Radha Talamantesold - Externa l Prediabete s - Unchanged Prediabete s - Unchanged Disease Active 10-29 00:00: 00 Radha Talamantesold - Externa l Essential hypertensi on - Controlled Essential hypertensi on - Controlled Disease Active 12-28 00:00: 00 Radha Talamantesold - Externa l Hypothyroi dism Hypothyroi dism Disease Active 12-28 00:00: 00 Radha Talamantesold - Externa l Allergies, Adverse Reactions, Alerts Allergy Name Allergy Type Status Severity Reaction(s) Onset Date Inactive Date Treating Clinician Comments Source Morphine Propensi ty to adverse reaction s Active 4- 00:00: 00 Radha Talamantesold - Externa l Social History Social Habit Start Date Stop Date Quantity Comments Source Exposure to SARS-CoV-2 (event) Not sure Radha gee Gender identity Krys Mcbride - External Sexual orientation K elsey Reed - External History of tobacco use Cigarette Smoker Radha boyd - External Cigarettes smoked current (pack per day) - Reported 2024-02-25 00:00:00 2024-02-25 00:00:00 Radha Mcbride - External Cigarette pack-years 2024-02-25 00:00:00 2024-02-25 00:00:00 Radha Mcbride - External Alcoholic beverage intake 2024-02-25 00:00:00 2024-02-25 00:00:00 Ex-drinker (finding) Radha Mcbride - External Tobacco use and exposure 2024-02-25 00:00:00 2024-02-25 00:00:00 Smokeless tobacco non-user Radha Mcbride - External Alcohol intake 2023-09-26 00:00:00 2023-09-26 00:00:00 Ex-drinker (finding) Radha Nevarez History of Social function 2023-03-21 00:00:00 2023-03-21 00:00:00 Radha Nevarez Education 2022-12-16 00:00:00 2022-12-16 00:00:00 17 Radha Neavrez Sex assigned at 1950 00:00:00 1950 00:00:00 Radha Nevarez Smoking Status Start Date Stop Date Source Ex-smoker 2024-02-25 00:00:00 2024-02-25 00:00:00 Megan Nevarez Never smoked tobacco Radha Nevarez Medications Ordered Medication Name Filled Medication Name Start Date Stop Date Current Medication? Ordering Clinician Indication Dosage Frequency Signature (SIG) Comments Components Source Vitamin K 100 MCG oral Tablet 02-24 13:27: 52 Yes 100ug QD Take 1 tablet (100 mcg total) by mouth daily. Radha estrella Thiamine Mononitrate (Vitamin B-1) 100 MG oral Tablet 02-24 13:27: 52 Yes 100mg QD Take 1 tablet (100 mg total) by mouth daily. Radha estrella Zinc 25 MG oral Tablet 02-24 13:27: 52 Yes 1{tbl} QD Take 1 tablet by mouth daily. Radha estrella Simethicone 125 MG oral Tablet 02-24 13:27: 52 Yes 1{tbl} Take 1 tablet by mouth as needed. Radha estrella Magnesium 400 MG oral Tablet 02-24 13:27: 06 Yes 1{tbl} QD Take 1 tablet by mouth nightly Radha estrella Loperamide HCl 2 MG oral Capsule 02-24 13:27: 06 Yes 2mg Q.25D Take 1 capsule (2 mg total) by mouth 4 times daily as needed for diarrhea. Radha estrella Cyanocobala min (Vitamin B-12) 1000 MCG oral Tablet 02-24 13:26: 27 Yes 1000ug QD Take 1 tablet (1,000 mcg total) by mouth daily. Radha estrella Cholecalcif daniel (Vitamin D) 25 MCG (1000 UT) oral Tablet 02-24 13:26: 17 02-24 00:00 :00 No 25U QD Take 25 units by mouth daily Radha estrella Cholecalcif daniel (Vitamin D3) 250 MCG (25438 UT) oral Capsule 02-24 13:26: 14 Yes [id number] QD Take 1 capsule (10,000 units total) by mouth daily. Radha estrella Trazodone HCl 50 MG oral Tablet 02-24 00:00: 00 Yes [id number] 50mg QD Take 1 tablet (50 mg total) by mouth nightly. Radha estrella Albuterol HFA 108 (90 Base) MCG/ACT IN AERS 02-24 00:00: 00 Yes [id number] 2{puff} Q.25D Inhale 2 puffs into the lungs every 6 hours as needed for wheezing. Radha estrella Phentermine HCl 15 MG oral Capsule 02-24 00:00: 00 02-24 00:00 :00 No [id number] 15mg Take 1 capsule (15 mg total) by mouth every morning. Radha estrella Omeprazole 20 MG oral Delayed Release Capsule 12-29 00:00: 00 Yes Radha estrella Acetaminoph en-Codeine 300-30 MG oral Tablet 6-13 00:00: 00 Yes TAKE 2 TABLETS BY MOUTH EVERY 6 HOURS NEEDED FOR FOR PAIN Radha estrella Iron Dextran (INFED) 975 mg in sodium chloride 0.9 % 500 mL infusion 11-27 20:45: 00 11-27 21:56 :00 No [id number] 975mg 975 mg, at 500 mL/hr, Administer over 60 Minutes, intravenou s, ONCE, On Fri11/28/23 at 1545, For 1 dose, Give 60 minutes after test dose. Solumedrol is recommende d only if patient has: Asthma, or Allergy to more than one drug, or History of inflammato ry arthritis. Solu-Medro l is recommende d only if the patient has: Asthma. Please indicate the Primary and Secondary diagnoses for Iron Treatment: Primary diagnosis: D50.8 Other iron deficiency anemias Secondary diagnosis: K90.4 Malabsorpt ion due to intoleranc e, not elsewhere classified Monitor and record vital signs at the completion of the Infed infusion. Radha estrelal Iron Dextran (INFED) 25 mg in sodium chloride 0.9 % 50 mL infusion 11-27 19:15: 00 11-27 19:48 :00 No [id number] 25mg 25 mg, at 300 mL/hr, Administer over 10 Minutes, intravenou s, ONCE, On Fri11/28/23 at 1415, For 1 dose, Observe the patient for at least 1 hour after test dose administra tion. Monitor and record vital signs at 15 minutes, 30 minutes, and 60 minutes for 1 hour observatio n. Radha estrella methylPREDN ISolone Na Suc (PF) (SOLU-MEDRO L) injection 125 mg 11-27 18:45: 00 11-27 18:55 :00 No [id number] 125mg 125 mg, Administer over 5 Minutes, intravenou s push, ONCE, On Fri11/28/23 at 1345, For 1 dose, Solumedrol is recommende d only if patient has: Asthma, or Allergy to more than one drug, or History of inflammato ry arthritis. Administer via IV Push over 5 minutes. Radha estrella Cholecalcif daniel (Vitamin D3) 250 MCG (36628 UT) oral Capsule 10-28 09:28: 22 Yes [id number] Take 1 capsule (10,000 units total) by mouth daily. Radha estrella Loperamide HCl 2 MG oral Capsule 10-28 09:28: 22 Yes 2mg Q.25D Take 1 capsule (2 mg total) by mouth 4 times daily as needed for diarrhea. Radha estrella Zinc 25 MG oral Tablet 10-28 09:28: 22 Yes 1{tbl} Take 1 tablet by mouth daily. Radha estrella Simethicone 125 MG oral Tablet 10-28 09:28: 22 Yes 1{tbl} Take 1 tablet by mouth as needed. Radha estrella Cholecalcif daniel (Vitamin D) 25 MCG (1000 UT) oral Tablet 10-28 09:28: 22 Yes 25U Take 25 units by mouth daily Radha estrella Vitamin K 100 MCG oral Tablet 10-28 09:28: 22 Yes 100ug Take 1 tablet (100 mcg total) by mouth daily. Radha estrella Thiamine Mononitrate (Vitamin B-1) 100 MG oral Tablet 10-28 09:28: 22 Yes 100mg Take 1 tablet (100 mg total) by mouth daily. Radha estrella Cyanocobala min (Vitamin B-12) 1000 MCG oral Tablet 10-28 09:28: 22 Yes 1000ug Take 1 tablet (1,000 mcg total) by mouth daily. Radha estrella Magnesium 400 MG oral Tablet 10-28 09:28: 22 Yes 1{tbl} Take 1 tablet by mouth nightly Radha estrella Na Sulfate-K Sulfate-Mg Sulf (SUPREP BOWEL PREP KIT) 17.5-3.13-1 .6 GM/177ML oral Solution 10-28 00:00: 00 Yes USE DIRECTED. Radha estrella Sod Picosulfate -Mag Ox-Cit Acd (Clenpiq) 10-3.5-12 MG-GM -GM/175ML oral Solution 10-28 00:00: 00 10-28 00:00 :00 No [id number] Instructio ns provided to patient. Follow instructio ns provided by provider.. Radha estrella Pancrelipas e, Lip-Prot-Am yl, (Creon) [id number] Particles 10-06 00:00: 00 02-24 00:00 :00 No [id number] Take 2 capsules with meals and 1 capsule with snacks.. Radha estrella Cholecalcif daniel (Vitamin D) 25 MCG (1000 UT) oral Tablet 09-30 08:59: 44 Yes 25U Take 25 units by mouth daily Radha estrella Vitamin K 100 MCG oral Tablet 09-30 08:59: 44 Yes 100ug Take 1 tablet (100 mcg total) by mouth daily. Radha estrella Thiamine Mononitrate (Vitamin B-1) 100 MG oral Tablet 09-30 08:59: 44 Yes 100mg Take 1 tablet (100 mg total) by mouth daily. Radha estrella Cyanocobala min (Vitamin B-12) 1000 MCG oral Tablet 09-30 08:59: 44 Yes 1000ug Take 1 tablet (1,000 mcg total) by mouth daily. Radha estrella Magnesium 400 MG oral Tablet 09-30 08:59: 44 Yes 1{tbl} Take 1 tablet by mouth nightly Radha estrella Omeprazole 20 MG oral Tablet Delayed Response 09-30 00:00: 00 02-24 00:00 :00 No [id number] 20mg QD Take 1 tablet (20 mg total) by mouth daily. Radha estrella Na Sulfate-K Sulfate-Mg Sulf (SUPREP BOWEL PREP KIT) 17.5-3.13-1 .6 GM/177ML oral Solution 09-15 00:00: 00 10-28 00:00 :00 No [id number] USE DIRECTED. Radha estrella Vitamin K 100 MCG oral Tablet 09-01 15:15: 16 Yes 100ug Take 1 tablet (100 mcg total) by mouth daily. Radha estrella Thiamine Mononitrate (Vitamin B-1) 100 MG oral Tablet 09-01 15:15: 16 Yes 100mg Take 1 tablet (100 mg total) by mouth daily. Radha estrella Cholecalcif daniel (Vitamin D) 25 MCG (1000 UT) oral Tablet 09-01 15:15: 09 Yes 25U Take 25 units by mouth daily Radha estrella Cyanocobala min (Vitamin B-12) 1000 MCG oral Tablet 09-01 15:15: 09 Yes 1000ug Take 1 tablet (1,000 mcg total) by mouth daily. Radha estrella Magnesium 400 MG oral Tablet 09-01 15:15: 09 Yes 1{tbl} Take 1 tablet by mouth nightly Radha estrella Ondansetron (ZOFRAN) 4 MG oral TABLET DISPERSIBLE 09-01 00:00: 00 Yes [id number] 4mg Q.[id number] 3D Take 1 tablet (4 mg total) by mouth every 8 hours as needed for nausea. Radha estrella Dicyclomine HCl 10 MG oral Capsule 09-01 00:00: 00 02-24 00:00 :00 No [id number] 10mg Take 1 capsule (10 mg total) by mouth 4 times daily (before meals and nightly). Radha estrella Trazodone HCl 50 MG oral Tablet 08-31 00:00: 00 02-24 00:00 :00 No [id number] TAKE 1 TABLET(50 MG) BY MOUTH AT BEDTIME NEEDED FOR SLEEP Radha estrella Levothyroxi ne Sodium 125 MCG oral Tablet 07-23 00:00: 00 Yes [id number] 125ug QD Take 1 tablet (125 mcg total) by mouth daily. Radha estrella Liothyronin e Sodium 5 MCG oral Tablet 07-20 00:00: 00 Yes [id number] TAKE 1 TABLET(5 MCG) BY MOUTH DAILY. Radha estrella Na Sulfate-K Sulfate-Mg Sulf (SUPREP BOWEL PREP KIT) 17.5-3.13-1 .6 GM/177ML oral Solution 2022-06 00:00: 00 09-01 00:00 :00 No [id number] USE DIRECTED. Radha estrella Cholecalcif daniel (Vitamin D) 25 MCG (1000 UT) oral Tablet 03-19 08:21: 38 Yes 25U Take 25 units by mouth daily Radha estrella Vitamin K 100 MCG oral Tablet 03-19 08:21: 38 Yes 100ug Take 1 tablet (100 mcg total) by mouth daily. Radha estrella Thiamine Mononitrate (Vitamin B-1) 100 MG oral Tablet 03-19 08:21: 38 Yes 100mg Take 1 tablet (100 mg total) by mouth daily. Radha estrella Cyanocobala min (Vitamin B-12) 1000 MCG oral Tablet 03-19 08:21: 38 Yes 1000ug Take 1 tablet (1,000 mcg total) by mouth daily. Radha estrella Magnesium 400 MG oral Tablet 03-19 08:21: 38 Yes 1{tbl} Take 1 tablet by mouth nightly Radha estrella Na Sulfate-K Sulfate-Mg Sulf (SUPREP BOWEL PREP KIT) 17.5-3.13-1 .6 GM/177ML oral Solution 03-19 00:00: 00 Yes USE DIRECTED. Radha estrella Omeprazole 40 MG oral Delayed Release Capsule 03-19 00:00: 00 09-01 00:00 :00 No [id number] 40mg Take 1 capsule (40 mg total) by mouth daily. Radha estrella Sod Picosulfate -Mag Ox-Cit Acd (Clenpiq) 10-3.5-12 MG-GM -GM/175ML oral Solution 03-19 00:00: 00 03-19 00:00 :00 No [id number] Instructio ns provided to patient. Follow instructio ns provided by provider.. Radha estrella Trazodone HCl 50 MG oral Tablet 03-06 00:00: 00 Yes [id number] TAKE 1 TABLET(50 MG) BY MOUTH AT BEDTIME NEEDED FOR SLEEP Radha estrella Magnesium 400 MG oral Tablet 12-16 09:13: 21 Yes 1{tbl} Take 1 tablet by mouth nightly Radha estrella Cyanocobala min (Vitamin B-12) 1000 MCG oral Tablet 12-16 09:13: 01 Yes 1000ug Take 1 tablet (1,000 mcg total) by mouth daily. Radha estrella Thiamine Mononitrate (Vitamin B-1) 100 MG oral Tablet 12-16 09:09: 14 Yes 100mg Take 1 tablet (100 mg total) by mouth daily. Radha estrella Cholecalcif daniel (Vitamin D) 25 MCG (1000 UT) oral Tablet 12-16 08:59: 17 Yes 25U Take 25 units by mouth daily Radha estrella Vitamin K 100 MCG oral Tablet 12-16 08:59: 17 Yes 100ug Take 1 tablet (100 mcg total) by mouth daily Radha estrella Cholecalcif daniel (Vitamin D) 25 MCG (1000 UT) oral Tablet 11-18 14:19: 25 Yes 25U Take 25 units by mouth daily Radha estrella Vitamin K 100 MCG oral Tablet 11-18 14:19: 25 Yes 100ug Take 1 tablet (100 mcg total) by mouth daily Radha estrella Acetaminoph en-Codeine (TYLENOL/CO DEINE #3) 300-30 MG oral Tablet 11-05 00:00: 00 Yes 1{tbl} Q.25D Take 1-2 tablets by mouth every 6 hours as needed for pain Driving Precaution s / No alcohol / No operating machinery Radha estrella Cholecalcif daniel (Vitamin D) 25 MCG (1000 UT) oral Tablet 11-04 09:40: 18 Yes 25U Take 25 units by mouth daily Radha estrella Vitamin K 100 MCG oral Tablet 11-04 09:40: 18 Yes 100ug Take 1 tablet (100 mcg total) by mouth daily. Radha estrella diazePAM 2 MG oral Tablet 10-31 00:00: 00 Yes 2mg Q.[id number] 3D Take 1 tablet (2 mg total) by mouth every 8 hours as needed Radha estrella Diclofenac Sodium 75 MG oral Tablet Delayed Response 04 00:00: 00 Yes 75mg Take 1 tablet (75 mg total) by mouth 2 times daily Radha estrella Levothyroxi ne Sodium 125 MCG oral Tablet - 00:00: 00 Yes [id number] 125ug Take 1 tablet (125 mcg total) by mouth daily Radha estrella Liothyronin e Sodium 5 MCG oral Tablet 10-28 00:00: 00 Yes [id number] TAKE 1 TABLET(5 MCG TOTAL) BY MOUTH DAILY Radha estrella Trazodone HCl 50 MG oral Tablet 3- 00:00: 00 Yes [id number] 50mg Take 1 tablet (50 mg total) by mouth at bedtime as needed for sleep Radha estrella Dicyclomine HCl 10 MG oral Capsule 12-04 00:00: 00 12-16 00:00 :00 No [id number] TAKE 1 CAPSULE BY MOUTH 4 TIMES DAILY NEEDED Radha estrella Cholecalcif daniel (Vitamin D) 25 MCG (1000 UT) oral Tablet 10-29 09:02: 21 Yes 25U Take 25 units by mouth daily Radha Mcbride Vitamin K 100 MCG oral Tablet 10-29 09:02: 21 Yes 100ug Take 100 mcg by mouth daily Radha Mcbride Trazodone HCl 50 MG oral Tablet 08-08 00:00: 00 Yes [id number] 50mg QD TAKE 1 TABLET (50 MG TOTAL) BY MOUTH NIGHTLY NEEDED FOR SLEEP Radha Mcbride Cholecalcif daniel (Vitamin D) 25 MCG (1000 UT) oral Tablet 2020-06 10:34: 46 Yes 25U Take 25 units by mouth daily Radha Mcbride Vitamin K 100 MCG oral Tablet 2020-06 10:34: 46 Yes 100ug Take 100 mcg by mouth daily Radha Mcbride Miconazole Nitrate 2 % apply externally Aero Powd 2020-06 0- 00:00: 00 10-29 00:00 :00 No [id number] Apply 1 applicatio n topically 2 times daily Radha Mcbride Naftifine HCl 2 % apply externally Cream 2020-06 00:00: 00 10-29 00:00 :00 No [id number] Apply 1 applicatio n topically daily Radha Mcbride Cholecalcif daniel (Vitamin D) 25 MCG (1000 UT) oral Tablet 2020-06 10:05: 05 Yes 25U Take 25 units by mouth daily Radha Mcbride Vitamin K 100 MCG oral Tablet 2020-06 10:05: 05 Yes 100ug Take 100 mcg by mouth daily Radha Mcbride Dicyclomine HCl 10 MG oral Capsule 2020-06 00:00: 00 Yes [id number] 10mg Q.25D Take 1 capsule (10 mg total) by mouth 4 times daily as needed Radha Mcbride Fluconazole 50 MG oral Tablet 2020-06 00:00: 00 10-29 00:00 :00 No [id number] 50mg Take 1 tablet (50 mg total) by mouth daily Radha Mcbride Nitrofurant oin Monohyd Macro (Macrobid) 100 MG oral Capsule 2020-06 00:00: 00 10-29 00:00 :00 No [id number] 100mg Take 1 capsule (100 mg total) by mouth 2 times daily Radha Mcbride Phenazopyri dine HCl 200 MG oral Tablet 2020-06 00:00: 00 10-29 00:00 :00 No [id number] 200mg Q.[id number] 3D Take 1 tablet (200 mg total) by mouth 3 times daily as needed for pain Radha Mcbride Fluconazole 100 MG oral Tablet 2020-06 00:00: 00 10-29 00:00 :00 No Radha Mcbride Phenazopyri dine HCl 100 MG oral Tablet 2020-06 00:00: 00 10-29 00:00 :00 No Radha Mcbride Terbinafine HCl does not apply Powder 2020-06 00:00: 00 10-29 00:00 :00 No [id number] Apply to affected area 2 times daily for 2-4 weeks Radha Mcbride Fluconazole 150 MG oral Tablet 2020-06 00:00: 00 04-25 04:59 :00 No [id number] 150mg Take 1 tablet (150 mg total) by mouth once for 1 dose Radha Mcbride Trazodone HCl 50 MG oral Tablet 2020-06 0-15 00:00: 00 Yes [id number] 50mg QD Take 1 tablet (50 mg total) by mouth nightly as needed for sleep Radha Mcbride Nystatin [id number] UNIT/GM apply externally Cream 8 00:00: 00 04-24 00:00 :00 No [id number] Apply to affected are twice a day Radha Mcbride Ipratropium -Albuterol (Combivent Respimat) 20-100 MCG/ACT inhalation aerosol inhaler 01-15 00:00: 00 10-29 00:00 :00 No 1{puff} Q4H Inhale 1 puff into the lungs every 4 hours as needed for shortness of breath Radha Mcbride Liothyronin e Sodium 5 MCG oral Tablet 12-28 00:00: 00 Yes [id number] 5ug Take 1 tablet (5 mcg total) by mouth daily Radha Mcbride Levothyroxi ne Sodium (Synthroid) 125 MCG oral Tablet 12-28 00:00: 00 Yes [id number] 125ug Take 1 tablet (125 mcg total) by mouth daily Radha Mcbride Amlodipine Besylate 5 MG oral Tablet 12-28 00:00: 00 10-29 00:00 :00 No [id number] 5mg Take 1 tablet (5 mg total) by mouth daily Radha Mcbride hydrOXYzine HCl 25 MG oral Tablet 12-28 00:00: 00 10-29 00:00 :00 No [id number] 25mg Q.[id number] 3D Take 1 tablet (25 mg total) by mouth 3 times daily as needed for itching Radha Mcbride Temazepam 7.5 MG oral Capsule 12-28 00:00: 00 10-29 00:00 :00 No [id number] 7.5mg QD Take 1 capsule (7.5 mg total) by mouth nightly as needed for sleep Radha Mcbride Immunizations Ordered Immunization Name Filled Immunization Name Date Status Comments Source Pneumococcal Vaccine, Polysaccharide 2018-06-17 00:00:00 Completed Radha Mcbride Pneumococcal Vaccine, Polysaccharide 2018-06-17 00:00:00 Completed Radha Talamantesold - External Pneumococcal Vaccine, Polysaccharide 2018-06-17 00:00:00 Completed Radha Mcbride - External Pneumococcal Vaccine, Polysaccharide 2018-06-17 00:00:00 Completed Radha Araujoybold - External Pneumococcal Vaccine, Polysaccharide 2018-06-17 00:00:00 Completed Radha Talamantesold Pneumococcal Vaccine, Polysaccharide 2018-06-17 00:00:00 Completed Radha Mcbride Tdap- (Boostrix, Adacel) 2017-12-25 00:00:00 Completed Radha Mcbride Tdap- (Boostrix, Adacel) 2017-12-25 00:00:00 Completed Radha Araujooliver - External Tdap- (Boostrix, Adacel) 2017-12-25 00:00:00 Com[facility] Tdap- (Boostrix, Adacel) 2017-12-25 00:00:00 Completed Radha Mcbride - External Tdap- (Boostrix, Adacel) 2017-12-25 00:00:00 Completed Radha Mcbride Tdap- (Boostrix, Adacel) 2017-12-25 00:00:00 Completed Radha Mcbride Tdap- (Boostrix, Adacel) Unknown Completed Radha Mcbride - External Pneumococcal Vaccine, Polysaccharide Unknown Completed Radha Araujoybol d - External Tdap- (Boostrix, Adacel) Unknown Completed Radha Araujoybold - External Pneumococcal Vaccine, Polysaccharide Unknown Completed Radha Seybol d - External Tdap- (Boostrix, Adacel) Unknown Completed Radha Araujoybold - External Pneumococcal Vaccine, Polysaccharide Unknown Completed Radha Seybol d - External Tdap- (Boostrix, Adacel) Unknown Completed Radha Seybold - External Pneumococcal Vaccine, Polysaccharide Unknown Completed Radha Seybol d - External Tdap- (Boostrix, Adacel) Unknown Completed Radha Araujoybold - External Pneumococcal Vaccine, Polysaccharide Unknown Completed Radha Seybol d - External Tdap- (Boostrix, Adacel) Unknown Completed Radha Seybold - External Pneumococcal Vaccine, Polysaccharide Unknown Completed Radha Seybol d - External Tdap- (Boostrix, Adacel) Unknown Completed Radha Seybold - External Pneumococcal Vaccine, Polysaccharide Unknown Completed Radha Seybol d - External Tdap- (Boostrix, Adacel) Unknown Completed Radha Seybold - External Pneumococcal Vaccine, Polysaccharide Unknown Completed Radha Seybol d - External Vital Signs Vital Name Observation Time Observation Value Comments S ource Systolic blood pressure 2024-02-25 18:21:00 158 mm[Hg] Radha Seybo ld - External Diastolic blood pressure 2024-02-25 18:21:00 80 mm[Hg] Radha Seybo ld - External Heart rate 2024-02-25 18:21:00 95 /min Kelse y Seybold - External Body temperature 2024-02-25 18:21:00 36.5 Jacy Radha Seybold - External Respiratory rate 2024-02-25 18:21:00 15 /min Radha Seybold - External Body height 2024-02-25 18:21:00 167.6 cm Krys ey Seybold - External Body weight 2024-02-25 18:21:00 72.576 kg Krys ey Seybold - External BMI 2024-02-25 18:21:00 25.82 kg/m2 Krys ey Seybold - External Systolic blood pressure 2023-11-28 18:37:00 163 mm[Hg] Radha Seybo ld - External Diastolic blood pressure 2023-11-28 18:37:00 72 mm[Hg] Radha Seybo ld - External Heart rate 2023-11-28 18:37:00 60 /min Kelse y Seybold - External Body temperature 2023-11-28 18:37:00 36.28 Jacy Radha Seybold - External Respiratory rate 2023-11-28 18:37:00 20 /min Radha Seybold - External Body height 2023-11-28 18:37:00 167.6 cm Rkys ey Seybold - External Body weight 2023-11-28 18:37:00 71.668 kg Krys ey Seybold - External BMI 2023-11-28 18:37:00 25.50 kg/m2 Krys ey Seybold - External Oxygen saturation in Arterial blood by Pulse oximetry 2023-11-28 18:37:00 96 /min Radha Seybo ld - External Systolic blood pressure 2023-10-29 14:19:00 167 mm[Hg] Radha Seybo ld - External Diastolic blood pressure 2023-10-29 14:19:00 75 mm[Hg] Radha Seybo ld - External Heart rate 2023-10-29 14:19:00 70 /min Kelse y Seybold - External Body temperature 2023-10-29 14:19:00 36.28 Jacy Radha Seybold - External Respiratory rate 2023-10-29 14:19:00 16 /min Radha Seybold - External Body height 2023-10-29 14:19:00 167.6 cm Krys ey Seybold - External Body weight 2023-10-29 14:19:00 71.215 kg Krys ey Seybold - External BMI 2023-10-29 14:19:00 25.34 kg/m2 Krys ey Seybold - External Systolic blood pressure 2023-10-01 13:58:00 182 mm[Hg] Radha Seybo ld - External Diastolic blood pressure 2023-10-01 13:58:00 74 mm[Hg] Radha Seybo ld - External Heart rate 2023-10-01 13:58:00 54 /min Kelse y Seybold - External Body temperature 2023-10-01 13:58:00 36.56 Jacy Radha Seybold - External Body height 2023-10-01 13:58:00 167.6 cm Krys ey Seybold - External Body weight 2023-10-01 13:58:00 70.308 kg Krys ey Seybold - External BMI 2023-10-01 13:58:00 25.02 kg/m2 Krys ey Seybold - External Systolic blood pressure 2023-09-02 21:09:00 184 mm[Hg] Radha Seybo ld - External Diastolic blood pressure 2023-09-02 21:09:00 84 mm[Hg] Radha Seybo ld - External Heart rate 2023-09-02 21:09:00 77 /min Kelse y Seybold - External Body temperature 2023-09-02 21:09:00 36.83 Jacy Radha Seybold - External Respiratory rate 2023-09-02 21:09:00 15 /min Radha Seybold - External Body height 2023-09-02 21:09:00 167.6 cm Krys ey Seybold - External Body weight 2023-09-02 21:09:00 70.761 kg Krys ey Seybold - External BMI 2023-09-02 21:09:00 25.18 kg/m2 Krys ey Seybold - External Systolic blood pressure 2023-03-19 13:19:00 198 mm[Hg] Radha Seybo ld - External Diastolic blood pressure 2023-03-19 13:19:00 74 mm[Hg] Radha Seybo ld - External Heart rate 2023-03-19 13:19:00 71 /min Kelse y Seybold - External Respiratory rate 2023-03-19 13:19:00 16 /min Radha Seybold - External Body height 2023-03-19 13:19:00 167.6 cm Krys ey Seybold - External Body weight 2023-03-19 13:19:00 70.761 kg Krys ey Seybold - External BMI 2023-03-19 13:19:00 25.18 kg/m2 Krys ey Seybold - External Systolic blood pressure 2022-12-16 14:29:00 140 mm[Hg] Radha Seybo ld - External Diastolic blood pressure 2022-12-16 14:29:00 74 mm[Hg] Radha Seybo ld - External Heart rate 2022-12-16 13:55:00 66 /min Kelse y Seybold - External Body temperature 2022-12-16 13:55:00 36.44 Jacy Radha Seybold - External Respiratory rate 2022-12-16 13:55:00 14 /min Radha Seybold - External Body height 2022-12-16 13:55:00 167.6 cm Krys ey Seybold - External Body weight 2022-12-16 13:55:00 73.483 kg Krys ey Seybold - External BMI 2022-12-16 13:55:00 26.15 kg/m2 Krys ey Seybold - External Oxygen saturation in Arterial blood by Pulse oximetry 2022-12-16 13:55:00 96 /min Radha Seybo ld - External Body weight 2022-11-18 19:17:00 75.751 kg Krys ey Seybold - External BMI 2022-11-18 19:17:00 26.95 kg/m2 Krys ey Seybold - External Systolic blood pressure 2022-11-04 14:36:00 193 mm[Hg] Radha Seybo ld - External Diastolic blood pressure 2022-11-04 14:36:00 76 mm[Hg] Radha Seybo ld - External Heart rate 2022-11-04 14:36:00 79 /min Kelse y Seybold - External Body temperature 2022-11-04 14:36:00 36.72 Jacy Radha Seybold - External Respiratory rate 2022-11-04 14:36:00 16 /min Radha Seybold - External Body height 2022-11-04 14:36:00 167.6 cm Krys ey Seybold - External Systolic blood pressure 2021-10-29 13:57:00 138 mm[Hg] Radha Seybo ld Diastolic blood pressure 2021-10-29 13:57:00 64 mm[Hg] Radha Seybo ld Heart rate 2021-10-29 13:57:00 60 /min Kelse y Seybold Body temperature 2021-10-29 13:57:00 36.17 Jacy Radha Seybold Respiratory rate 2021-10-29 13:57:00 14 /min Radha Seybold Body height 2021-10-29 13:57:00 167.6 cm Krys ey Seybold Body weight 2021-10-29 13:57:00 75.751 kg Krys ey Seybold BMI 2021-10-29 13:57:00 26.95 kg/m2 Krys ey Seybold Systolic blood pressure 2021-05-22 16:29:00 164 mm[Hg] Radha Seybo ld Diastolic blood pressure 2021-05-22 16:29:00 70 mm[Hg] Radha Seybo ld Heart rate 2021-05-22 16:29:00 68 /min Kelse y Seybold Body temperature 2021-05-22 16:29:00 36.28 Jacy Radha Seybold Respiratory rate 2021-05-22 16:29:00 14 /min Radha Seybold Body height 2021-05-22 16:29:00 167.6 cm Krys ey Seybold Body weight 2021-05-22 16:29:00 80.74 kg Krys ey Seybold BMI 2021-05-22 16:29:00 28.73 kg/m2 Krys ey Seybold Systolic blood pressure 2021-04-24 15:04:00 142 mm[Hg] Radha Seybo ld Diastolic blood pressure 2021-04-24 15:04:00 79 mm[Hg] Radha Seybo ld Heart rate 2021-04-24 15:04:00 62 /min Kelse y Seybold Body temperature 2021-04-24 15:04:00 36.83 Jacy Radha Seybold Respiratory rate 2021-04-24 15:04:00 14 /min Rdaha Seybold Body height 2021-04-24 15:04:00 167.6 cm Krys ey Seybold Body weight 2021-04-24 15:04:00 82.645 kg Krys ey Seybold BMI 2021-04-24 15:04:00 29.41 kg/m2 Krys ey Seybold Procedures Procedure Date / Time Performed Performing Clinicia n Source [facility] 2022-12-16 14:32:54 Daren Caputo - External URINALYSIS NONAUTO W/O SCOPE 2021-04-24 15:23:00 Hank Horne Plan of Care Planned Activity Planned Date Details Comments Source Encounters Start Date/Time End Date/Time Encounter Type Admission Type Attending [facility] Facility Care Department Encounter ID Source 2024-05-05 15:00:00 2024-05-05 15:00:00 Outpatient NEO GRIER [id number] Radha Mcbride 2024-03-25 12:30:00 2024-03-25 12:30:00 Outpatient DENNY ROBERTSON [id number] Radha Mcbride 2024-03-15 14:00:00 2024-03-15 14:00:00 Outpatient DEN[facility] ROBERT[facility] [id number] [facility] 2024-02-27 16:00:00 2024-02-27 16:00:00 Outpatient CHERRIENEO RADHA DOTSON [id number] Radha Seybold 2024-02-25 13:30:00 2024-02-25 13:30:00 Outpatient HUNDLeobardoHANK RADHA DOTSON [id number] Radha Seybold 2024-02-17 00:00:00 2024-02-17 00:00:00 Outpatient ROSA MARIADYLAN DAREN RADHA DOTSON [id number] Radha Seybold 2024-02-05 00:00:00 2024-02-05 00:00:00 Outpatient RADHA DOT[facility] [id number] [facility] 2024-02-04 00:00:00 2024-02-04 00:00:00 Outpatient DENNY ROBERTSON [id number] [facility] 2024-01-09 00:00:00 2024-01-09 00:00:00 Outpatient ROSEMARIE MORALES [id number] [facility] 2023-12-31 00:00:00 2023-12-31 00:00:00 Outpatient CHERRIENEO RADHA DOT[facility] [id number] [facility] 2023-12-26 10:20:00 2023-12-26 10:20:00 Outpatient LAB90 RADHA DOTSON [id number] Radha Seybold 2023-11-28 13:30:00 2023-11-28 13:30:00 Outpatient INFUSION, MALA DOTSON [id number] Radha Seybold 2023-11-27 00:00:00 2023-11-27 00:00:00 Outpatient MD RADHA THOMAS [id number] Radha Seybold 2023-11-20 00:00:00 2023-11-20 00:00:00 Outpatient CAITLIN BRYANT [id number] Radha Seybold 2023-11-20 00:00:00 2023-11-20 00:00:00 Outpatient CAITLIN BRYANT [id number] Radha Seybold 2023-11-07 00:00:00 2023-11-07 00:00:00 Outpatient NEO GRIER RADHA DOTSON [id number] Radha Seybold 2023-10-29 09:30:00 2023-10-29 09:30:00 Outpatient DENNY ROBERTSON RADHA DOTSON [id number] Radha Seybold 2023-10-24 00:00:00 2023-10-24 00:00:00 Outpatient NEO GRIER RADHA DOTSON [id number] Radha Seybold 2023-10-22 00:00:00 2023-10-22 00:00:00 Outpatient LORENASHAN RADHA DOTSON [id number] Radha Seybold 2023-10-20 15:00:00 2023-10-20 15:00:00 Outpatient HANK HORNE [id number] Radha Seybold 2023-10-17 15:30:00 2023-10-17 15:30:00 Outpatient NEO GRIER RADHA DOTSON [id number] Radha Seybold 2023-10-17 00:00:00 2023-10-17 00:00:00 Outpatient CAITLIN BRYANT RADHA DOTSON [id number] Radha Seybold 2023-10-02 15:30:00 2023-10-02 15:30:00 Outpatient DENNY ROBERTSON RADHA DOTSON [id number] Radha Seybold 2023-10-01 13:45:00 2023-10-01 13:45:00 Outpatient LAB90 RADHA DOTSON [id number] Radha Seybold 2023-10-01 13:30:00 2023-10-01 13:30:00 Outpatient HUNDL, HANK DOTSON [id number] Radha Seybold 2023-10-01 09:30:00 2023-10-01 09:30:00 Outpatient LAB47 RADHA DOTSON [id number] Radha Seybold 2023-10-01 09:00:00 2023-10-01 09:00:00 Outpatient ALEJANDRINA, DENNY DOTSON [id number] Radha Seybold 2023-10-01 00:00:00 2023-10-01 00:00:00 Outpatient MD RADHA THOMAS [id number] Radha yboliver 2023-09-25 13:30:00 2023-09-25 13:30:00 Outpatient NIDHI ROBERTSONSHAYY DOTSON [id number] Radha yboliver 2023-09-23 00:00:00 2023-09-23 00:00:00 Outpatient MD RADHA THOMAS [id number] Rad[facility] 2023-09-22 00:00:00 2023-09-22 00:00:00 Outpatient MD RADHA THOMAS [id number] Radha [facility] 2023-09-22 00:00:00 2023-09-22 00:00:00 Outpatient NIDHI ROBERTSONSHAYY DOTSON [id number] Radha [facility] 2023-09-16 00:00:00 2023-09-16 00:00:00 Outpatient DENNY ROBERTSON RADHA DOT[facility] [id number] [facility] 2023-09-15 00:00:00 2023-09-15 00:00:00 Outpatient DENNY ROBERTSON RADHA DOTSON [id number] Radha [facility] 2023-09-10 00:00:00 2023-09-10 00:00:00 Outpatient RADHA DOTSON [id number] [facility] 2023-09-05 00:00:00 2023-09-05 00:00:00 Outpatient HANK HORNE [id number] [facility] 2023-09-02 16:00:00 2023-09-02 16:00:00 Outpatient LAB90 RADHA DOTSON [id number] Radha Seybold 2023-09-02 15:00:00 2023-09-02 15:00:00 Outpatient HANK HORNE [id number] Radha Seybold 2023-08-30 00:00:00 2023-08-30 00:00:00 Outpatient HANK HORNE [id number] Radha Seybold 2023-08-28 00:00:00 2023-08-28 00:00:00 Outpatient HANK HORNE RADHA DOTSON [id number] Radha Seybold 2023-07-21 00:00:00 2023-07-21 00:00:00 Outpatient ANDREWROSEMARIE GARCIA RADHA DOTSON [id number] Radha Seybold 2023-07-20 00:00:00 2023-07-20 00:00:00 Outpatient ANDREWROSEMARIE RADHA DOTSON [id number] Radha Seybold 2023-07-19 00:00:00 2023-07-19 00:00:00 Outpatient COLEEN HANK RADHA DOTSON [id number] Radha Seybold 2023-07-02 09:30:00 2023-07-02 09:30:00 Outpatient DENNY ROBERTSON [id number] Radha Seybold 2023-04-15 00:00:00 2023-04-15 00:00:00 Outpatient ANDREWROSEMARIE RADHA DOTSON [id number] Radha Seybold 2023-04-10 13:30:00 2023-04-10 13:30:00 Outpatient RADHA DOTSON [id number] Radha Seybold 2023-04-10 00:00:00 2023-04-10 00:00:00 Outpatient ANDREWROSEMARIE GARCIA RADHA DOTSON [id number] Radha Seybold 2023-04-04 00:00:00 2023-04-04 00:00:00 Outpatient MD RADHA THOMAS [id number] Radha Seybold 2023-04-03 00:00:00 2023-04-03 00:00:00 Outpatient DENNY ROBERTSON [id number] Radha Seybold 2023-04-01 00:00:00 2023-04-01 00:00:00 Outpatient DENNY ROBERTSON [id number] Radha Seybold 2023-03-28 12:30:00 2023-03-28 12:30:00 Outpatient DENNY ROBERTSON [id number] Radha Seybold 2023-03-28 00:00:2023-03-28 00:00:00 Outpatient FELICITA ALTMAN RADHA DOTSON [id number] Radha Seybold 2023-03-21 09:35:00 2023-03-21 09:35:00 Outpatient LAB90 RADHA DOTSON [id number] Radha Seybold 2023-03-20 00:00:00 2023-03-20 00:00:00 Outpatient RADHA ODTSON [id number] Radha Seybold 2023-03-20 00:00:00 2023-03-20 00:00:00 Outpatient HUSSEIN OROZCO RADHA DOTSON [id number] Radha Seybold 2023-03-19 09:30:00 2023-03-19 09:30:00 Outpatient LAB47 RADHA DOTSON [id number] Radha Seybold 2023-03-19 09:00:00 2023-03-19 09:00:00 Outpatient TRED47 RADHA DOTSON [id number] Radha Seybold 2023-03-19 08:30:00 2023-03-19 08:30:00 Outpatient ALEJANDRINA DENNY RADHA DOTSON [id number] Radha Seybold 2023-03-05 00:00:00 2023-03-05 00:00:00 Outpatient HANK HORNE [id number] Radha Seybold 2023-02-20 00:00:00 2023-02-20 00:00:00 Outpatient DAREN CAPUTO [id number] Radha Seybold 2023-02-14 00:00:00 2023-02-14 00:00:00 Outpatient PREDAREN RICHARDSON [id number] Radha Seybold 2023-01-30 00:00:00 2023-01-30 00:00:00 Outpatient ROSEMARIE MORALES [id number] Radha Seybold 2022-12-16 09:45:00 2022-12-16 09:45:00 Outpatient LAB90 RADHA DOTSON [id number] Radha Seybold 2022-12-16 08:45:00 2022-12-16 08:45:00 Outpatient DAREN CAPUTO [id number] Radha Seybold 2022-12-16 00:00:00 2022-12-16 00:00:00 Outpatient RADHA DOTSON [id number] Radha yboliver 2022-12-03 09:00:00 2022-12-03 09:00:00 Outpatient COLEEN HANK RADHA DOTSON [id number] Radha [facility] 2022-11-18 14:00:00 2022-11-18 14:00:00 Outpatient [facility] [id number] [facility] 2022-[facility]-18 13:55:00 2022-11-18 13:55:00 Outpatient RAD[facility] DOT[facility] [id number] [facility] 2022-11-18 13:30:00 2022-11-18 13:30:00 Outpatient CARSON FRANCOHEN RADHA DOTSON [id number] [facility] 2022-11-18 00:00:00 2022-11-18 00:00:00 Outpatient JOAN, LENNOX DOTSON [id number] Radha [facility] 2022-11-18 00:00:00 2022-11-18 00:00:00 Outpatient RADHA DOTSON [id number] [facility] 2022-11-05 10:30:00 2022-11-05 10:30:00 Outpatient HANK HORNE [id number] Radha [facility] 2022-11-05 00:00:00 2022-11-05 00:00:00 Outpatient LENNOX FRANCO [id number] [facility] 2022-11-04 09:50:00 2022-11-04 09:50:00 Outpatient JOANLENNOX [id number] [facility] 2022-11-04 00:00:00 2022-11-04 00:00:00 Outpatient RADHA DOTSON [id number] [facility] 2022-10-31 00:00:00 2022-10-31 00:00:00 Outpatient HANK HORNE [id number] [facility] 2022-10-25 00:00:00 2022-10-25 00:00:00 Outpatient ROSEMARIE MORALES [id number] Radha [facility] 2022-10-21 00:00:00 2022-10-21 00:00:00 Outpatient ROSEMARIE MORALES RADHA DOTSON [id number] Radha Araujoy[facility]iver 2022-10-21 00:00:00 2022-10-21 00:00:00 Outpatient SRIDEVI HORNEWaldemar DOTSON [id number] Radha yboliver 2022-09-03 00:00:00 2022-09-03 00:00:00 Outpatient COLEEN HANK DOTSON [id number] Radha yboliver 2022-07-03 00:00:00 2022-07-03 00:00:00 Outpatient COLEEN HANK DOTSON [id number] Radha Reed 2022-03-25 00:00:00 2022-03-25 00:00:00 Outpatient COLEEN HANK DOTSON [id number] Radha [facility] 2021-12-24 10:45:00 2021-12-24 10:45:00 Outpatient DENNY ROBERTSON RADHA DOTSON [id number] [facility] 2021-10-30 00:00:00 2021-10-30 00:00:00 Outpatient HANK HORNE RADHA DOTSON [id number] [facility] 2021-10-29 10:15:00 2021-10-29 10:15:00 Outpatient LAB90 RADHA DOTSON [id number] [facility] 2021-10-29 09:00:00 2021-10-29 10:00:00 Office Visit FaridaHank estrella Jackson [id number] Radha Seyboliver 2021-08-08 00:00:00 2021-08-08 00:00:00 Outpatient ROSEMARIE MORALES RADHA DOTSON [id number] Radha Seybold 2021-05-22 11:15:00 2021-05-22 11:15:00 Outpatient LAB90 RADHA DOTSON [id number] Radha Seybold 2021-05-22 10:30:00 2021-05-22 11:00:00 Office Visit Hank Horne [id number] Radha Mcbride 2021-04-25 00:00:00 2021-04-25 00:00:00 Outpatient ROSEMARIE MORALES [id number] Radha Seritaoliver 2021-04-24 09:55:03 2021-04-24 10:25:03 Office Visit Hank Horne [id number] Radha Mcbride 2021-02-15 00:00:00 2021-02-15 00:00:00 Outpatient ROSEMARIE MORALES [id number] Radha ritaoliver 2021-01-04 14:00:00 2021-01-04 14:00:00 Outpatient ROSEMAREI MORALES [id number] Radha Mcbride Results Test Description Test Time Test Comments Results Result Co mments Source Radha Mcbride - ExternalURINALYSIS NONAUTO W/O [id number] 15:23:00* Test Item Value Reference Range Interpretation Comme nts UD KETONES (test code = 546645) neg 5-160 UD GLUCOSE (test code = 959731) neg 100-2000 UD PROTEIN (test code = 927908) trace Trace - 2000 mg/dL UD LEUKOCYTES (test code = 863444) LG Trace - Large @ 2 min. UD NITRITE (test code = 649072) NEG Neg. - Pos. @ 60 sec. UD UROBILINOGEN (test code = 109212) 0.2 mg/dL 0.2-8 UD PH (test code = 778875) See_Comment [Automated messa ge] The system which generated this result transmitted reference range: 5.0 - 8.5 @ 60 sec.. The reference range was not used to interpret this result as normal/abnormal. UD BLOOD (test code = 572081) MOD Neg. - Large @ 60 sec. UD SPECIFIC GRAVITY (test code = 558868) See_Comment [Automated message] The system which generated this result transmitted reference range: 1.000 - 1.030 @ 45 sec.. The reference range was not used to interpret this result as normal/abnormal. UD BILIRUBIN (test code = 946332) NEG Neg. - Large @ 45 sec. Lab Interpretation (test code = 93452-8) Abnormal Radha Mcbride History and Physical Notes Date/Time Note Provider Source 2023-10-29 12:00:40 GI Return Visit Chief Complaint Patient presents with Follow-up On new meds. 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 HPI: Mayuri Barkley is a 73 year old female who presents to discuss multiple issues. I last saw her 09/2023. We had previously discussed multiple issues including constipation, longstanding epigastric abdominal pain and nausea, and also an iron deficiency without anemia. Additionally, she also had a positive Cologuard. I started her on omeprazole and also recommended MiraLAX for her constipation symptoms. Our workup included the followin02/2023 colonoscopy: 25 mm ulcerated and friable polyp, biopsies with inflammatory polyp. Not completely removed. 4 other TA, largest 12mm. Tics. Roids. 02/2023 EGD: Small gastric pouch, biopsies negative for H. pylori. Sheyla-en-Y gastric bypass. Normal small bowel distal to anastomosis, biopsies negative. 03/2023 CT chest/abdomen/pelvis: Oval lesion in cecum. No metastasis. 08/2023 hemoglobin 13.5, ferritin 9, transferrin saturation 8% 08/2023 LFT unremarkable At the time of her last visit, her weight was stable. Her previous constipation symptoms had resolved. In fact, she was having significant difficulty with diarrhea. Multiple times per week, she would have 7 or 8 loose and urgent bowel movements in a single day. Along with this, she also had nocturnal diarrhea without any melena or hematochezia. She described crampy abdominal pain which would occur before bowel movement and improved with a bowel movement. We had recently planned on repeating colonoscopy for full excision of her inflammatory colon polyp (on the small chance that it may be harboring a malignancy), but she canceled the procedure on account of her symptoms. Our workup after her last visit included the followin09/2023 stool culture, ova and parasites, Giardia, C. difficile, fecal leukocytes negative 09/2023 celiac serologies negative 09/2023 fecal elastase less than 50 Following results of her fecal elastase, I did start her on Creon. She is using 48,000 units with meals and 24,000 units of lipase with snacks. Despite this, she is continue to have 3-4 loose bowel movements per day. She also has ongoing difficulty with abdominal pain which occurs prior to bowel movements and improves with bowel movements. Fortunately, she has not had any further weight loss since our last visit. Imodium does seem to help with her diarrhea when she takes it. Current Outpatient Medications on File Prior to Visit Medication Sig Dispense Refill Cholecalciferol (Vitamin D) 25 MCG (1000 UT) oral Tablet Take 25 units by mouth daily Cholecalciferol (Vitamin D3) 250 MCG (16067 UT) oral Capsule Take 1 capsule (10,000 units total) by mouth daily. Levothyroxine Sodium 125 MCG oral Tablet Take 1 tablet (125 mcg total) by mouth daily. 90 tablet 2 Liothyronine Sodium 5 MCG oral Tablet TAKE 1 TABLET(5 MCG) BY MOUTH DAILY. 90 tablet 2 Loperamide HCl 2 MG oral Capsule Take 1 capsule (2 mg total) by mouth 4 times daily as needed for diarrhea. Magnesium 400 MG oral Tablet Take 1 tablet by mouth nightly Omeprazole 20 MG oral Tablet Delayed Response Take 1 tablet (20 mg total) by mouth daily. 90 tablet 3 Ondansetron (ZOFRAN) 4 MG oral TABLET DISPERSIBLE Take 1 tablet (4 mg total) by mouth every 8 hours as needed for nausea. 21 tablet 1 Pancrelipase, Ych-Tabv-Khdj, (Creon) 27365-[address] Particles Take 2 capsules with meals and 1 capsule with snacks.. 210 capsule 5 Simethicone 125 MG oral Tablet Take 1 tablet by mouth as needed. Thiamine Mononitrate (Vitamin B-1) 100 MG oral Tablet Take 1 tablet (100 mg total) by mouth daily. Trazodone HCl 50 MG oral Tablet TAKE 1 TABLET(50 MG) BY MOUTH AT BEDTIME NEEDED FOR SLEEP 90 tablet 1 Vitamin K 100 MCG oral Tablet Take 1 tablet (100 mcg total) by mouth daily. Zinc 25 MG oral Tablet Take 1 tablet by mouth daily. Cyanocobalamin (Vitamin B-12) 1000 MCG oral Tablet Take 1 tablet (1,000 mcg total) by mouth daily. (Patient not taking: Reported on 10/29/2023.) Dicyclomine HCl 10 MG oral Capsule Take 1 capsule (10 mg total) by mouth 4 times daily (before meals and nightly). (Patient not taking: Reported on 10/29/2023.) 120 capsule 0 No current facility-administered medications on file prior to visit. Allergies Allergen Reactions Morphine ROS: 04/12 systems reviewed, negative except for as mentioned in HPI. Social history and family history has been reviewed and is unchanged except for as mentioned in HPI. PE: BP 167/75 (Side: Right Arm, Position: SITTING, Cuff Size: Large Adult) | Pulse 70 | Temp 97.3 ?F (36.3 ?C) (Oral) | Resp 16 | Ht 5' 6" (1.676 m) | Wt 157 lb (71.2 kg) | BMI 25.34 kg/m? Gen: NAD, AO x 3 HEENT: PERRLA EOMI, MMM, No icterus Ab: soft, nt, nd, +bs, no rebound/guarding, no HSM CV: No ext c/c/e, wwp Skin: No rashes, jaundice, petechiae Psych: Appropriate mood and affect Neuro: CN II-XII grossly intact : Deferred Pertinent Lab and Diagnostic Tests: Reviewed in EMR. A/P: 73 year old female who presents with multiple issues. 1. Diarrhea, generalized abdominal pain, nausea/vomiting: She has had persistent difficulty with abdominal pain and diarrhea despite Creon. She has a small gastric pouch and gastroparesis may be playing a role in her nausea and vomiting symptoms. Fortunately her weight has remained stable. My recommendations are as follows: --Random colon biopsies at next colonoscopy -ordered --Use IBgard prior to meals --Omeprazole 20 mg daily --Ondansetron as needed --Consider GES in the future for nausea and vomiting --Rifaximin if colonoscopy is unremarkable 2. Iron deficiency: No evidence of celiac disease, H. pylori on upper endoscopy. She did have an inflammatory polyp which may be intermittently bleeding and contributing to her iron deficiency. 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 --Continue hematology f/u for iron infusions --Colonoscopy as above for removal of inflammatory polyp RV 3 mos. Thank you for this interesting consultation. The above instructions were reviewed with the patient during the clinic visit. All questions were answered. 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 HPI: Mayuri Barkley is a 73 year old female who presents to discuss multiple issues. I last saw her 02/2023. At that time, we discussed multiple issues including constipation, longstanding epigastric abdominal pain and nausea, and also an iron deficiency without anemia. Additionally, she also had a positive Cologuard. I started her on omeprazole, but she was hesitant to take this. I also recommended MiraLAX for her constipation symptoms. Our workup included the followin02/2023 colonoscopy: 25 mm ulcerated and friable polyp, biopsies with inflammatory polyp. Not completely removed. 4 other TA, largest 12mm. Tics. Roids. 02/2023 EGD: Small gastric pouch, biopsies negative for H. pylori. Sheyla-en-Y gastric bypass. Normal small bowel distal to anastomosis, biopsies negative. 03/2023 CT chest/abdomen/pelvis: Oval lesion in cecum. No metastasis. 08/2023 hemoglobin 13.5, ferritin 9, transferrin saturation 8% 08/2023 LFT unremarkable She presents in follow-up today. Her weight has actually been stable since her last visit with us. As far as her symptoms are concerned, her previous constipation has now resolved. Currently, she is having diarrhea. Multiple times per week, she will have 7 or 8 loose and urgent bowel movements in a single day. Along with this, she also has nocturnal diarrhea. She does not see any melena or hematochezia. She has crampy generalized abdominal pain which can improve with having a bowel movement. She also has associated nausea and nonbloody/nonbilious emesis. As above, she is currently not using her PPI. We had recently planned on repeating colonoscopy for full excision of her inflammatory colon polyp (on the small chance that it may be harboring a malignancy), but she canceled the procedure on account of her symptoms. Current Outpatient Medications on File Prior to Visit Medication Sig Dispense Refill Cholecalciferol (Vitamin D) 25 MCG (1000 UT) oral Tablet Take 25 units by mouth daily Cyanocobalamin (Vitamin B-12) 1000 MCG oral Tablet Take 1 tablet (1,000 mcg total) by mouth daily. Dicyclomine HCl 10 MG oral Capsule Take 1 capsule (10 mg total) by mouth 4 times daily (before meals and nightly). 120 capsule 0 Levothyroxine Sodium 125 MCG oral Tablet Take 1 tablet (125 mcg total) by mouth daily. 90 tablet 2 Liothyronine Sodium 5 MCG oral Tablet TAKE 1 TABLET(5 MCG) BY MOUTH DAILY. 90 tablet 2 Magnesium 400 MG oral Tablet Take 1 tablet by mouth nightly Na Sulfate-K Sulfate-Mg Sulf (SUPREP BOWEL PREP KIT) 17.5-3.13-1.6 GM/177ML oral Solution USE DIRECTED. 1 kit 0 Ondansetron (ZOFRAN) 4 MG oral TABLET DISPERSIBLE Take 1 tablet (4 mg total) by mouth every 8 hours as needed for nausea. 21 tablet 1 Thiamine Mononitrate (Vitamin B-1) 100 MG oral Tablet Take 1 tablet (100 mg total) by mouth daily. Trazodone HCl 50 MG oral Tablet TAKE 1 TABLET(50 MG) BY MOUTH AT BEDTIME NEEDED FOR SLEEP 90 tablet 1 Vitamin K 100 MCG oral Tablet Take 1 tablet (100 mcg total) by mouth daily. No current facility-administered medications on file prior to visit. Allergies Allergen Reactions Morphine ROS: 04/12 systems reviewed, negative except for as mentioned in HPI. Social history and family history has been reviewed and is unchanged except for as mentioned in HPI. PE: BP 182/74 (Side: Right Arm, Position: SITTING, Cuff Size: Large Adult) | Pulse 54 | Temp 97.8 ?F (36.6 ?C) (Oral) | Ht 5' 6" (1.676 m) | Wt 155 lb (70.3 kg) | BMI 25.02 kg/m? Gen: NAD, AO x 3 HEENT: PERRLA EOMI, MMM, No icterus Ab: soft, nt, nd, +bs, no rebound/guarding, no HSM CV: No ext c/c/e, wwp Skin: No rashes, jaundice, petechiae Psych: Appropriate mood and affect Neuro: CN II-XII grossly intact : Deferred Pertinent Lab and Diagnostic Tests: Reviewed in EMR. A/P: 73 year old female who presents with multiple issues. 1. Diarrhea, generalized abdominal pain, nausea/vomiting: We discussed that her symptoms certainly could be a manifestation of an infection or potentially even pancreatic insufficiency. She has a small gastric pouch and gastroparesis may be playing a role in her nausea and vomiting symptoms. Fortunately her weight loss has now resolved. My recommendations are as follows: --Infectious stool studies --Fecal elastase --Random colon biopsies at next colonoscopy --Thyroid studies --Can use dicyclomine as needed --Reorder omeprazole 20 mg daily --Ondansetron as needed --Consider GES in the future for nausea and vomiting --Order colonoscopy at next visit for removal of polyp and random biopsies 2. Iron deficiency: No evidence of celiac disease, H. pylori on upper endoscopy. She did have an inflammatory polyp which may be intermittently bleeding and contributing to her iron deficiency. 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 --Refer to hematology as oral iron supplementation may not be sufficient RV 4 wks. Thank you for this interesting consultation. The above instructions were reviewed with the patient during the clinic visit. All questions were answered. Denny Robertson MD [facility] Notes Date/Time Note Provider Source 2024-02-25 13:25:06 Chief Complaint Patient presents with Physical Patient is not fasting. No other issues to discuss REFILLS-NURSE/MD Karlene Palma MA II [facility] 2023-10-29 09:23:09 Chief Complaint Patient presents with Follow-up On new meds. Daylin Vuong LVN [facility] 2023-09-02 15:15:18 Chief Complaint Patient presents with OTHER She is wanting an excuse for jury duty due to abdominal pain that radiates to back. Diarrhea for the past few days. No vomiting. Karlene Palma MA II [facility]
[2024-02-25 15:51] LABS: Absolute Basophils 0.1 K/uL (0-0.5); Absolute Eosinophils 0.3 K/uL (0-0.5); Absolute Lymphocytes (CBC) 2.9 K/uL (0.7-4.9); Absolute Monocytes 0.7 K/uL (0.1-1.3); Absolute Neutrophil 4.5 K/uL (1.8-8.0); Basophils % 0.9 % (0-1.3); Eosinophils % 3.3 % (0-4.4); Hematocrit 44.7 % (36.0-45.0); Hemoglobin 14.9 g/dL (12.0-15.0); Lymphocytes % 34.3 % (15.3-44.8); MCH 27.4 pg (27.0-35.0); MCHC 33.2 g/dL (32.0-36.0); MCV 82.6 fL (80-100); Monocytes % 8.5 % (3.3-12.3); Nucleated Red Blood Cells % 0.1 % (0-0); Platelets 260 thou/uL (152-406); RBC Red Blood Cell Count 5.42 M/uL (3.86-4.86); Red Cell Distribution Width 15.5 % (12.1-15.2)
[2024-02-25 15:53] LABS: PT Prothrombin Time 10.9 SECONDS (9.4-12.5); Protime INR 0.97
[2024-02-25 16:16] LABS: ALT/SGPT 37 U/L (13-56); AST/SGOT 16 U/L (15-37); Albumin 3.5 g/dL (3.4-5.0); Albumin/Globulin Ratio 1.1 (1.1-1.8); Alkaline Phosphatase 82 U/L (45-117); Anion Gap 6.6 mEq/L (5.0-15.0); BUN Blood Urea Nitrogen 12 mg/dL (7-18); Bicarbonate 28 mEq/L (21-32); Bilirubin Total 0.3 mg/dL (0.2-1.0); Globulin 3.3 g/dL (2.3-3.5); Glomerular Filtration Rate 64 ml/min (=/>90); Glucose Level 89 mg/dL (74-106); Magnesium 1.9 mg/dL (1.6-2.4); NT PRO-BNP 1519 pg/mL (<125); Potassium 3.6 mEq/L (3.5-5.1); Protein, Total 6.8 g/dL (6.4-8.2); Sodium Level 141 mEq/L (136-145); Thyroid Stimulating Hormone 0.021 uIU/mL (0.358-3.740); Troponin High Sensitivity 7.2 pg/mL (<58.9)
[2024-02-25 16:17] LABS: Bilirubin Direct < 0.2 mg/dL (0-0.2); Bilirubin Indirect, Calculated 0.1 mg/dL (0.2-0.8)
--- NOTE | 2024-02-25 16:36 | RAD REPORT ---
EXAM DESCRIPTION: RAD - Chest Single View - 02/25/2024 4:31 pm CLINICAL HISTORY: CHEST PAIN Chest pain. COMPARISON: CHEST PA AND LAT 2 VIEW dated 05/06/2013 FINDINGS: Portable technique limits examination quality. The lungs are grossly clear. The heart is upper limit of normal in size. No displaced fractures. IMPRESSION: No acute intrathoracic process suspected.
--- NOTE | 2024-02-25 17:12 | EDPHYS ---
Physician Documentation [facility] Name: Mayuri Barkley Age: 73 yrs Sex: Female : 1950 Arrival Date: 02/25/2024 Time: 15:09 Bed 14 Private MD: ED Physician Saji Salguero HPI: 02/24 15:35 This 73 yrs old Female presents to ER via Ambulatory with complaints of Abnormal EKG. sb4 15:37 Patient states that she was at her routine wellness visit, had an EKG done, and was sb4 sent to the ED because it showed atrial fibrillation with rapid ventricular response. Patient states that she has had intermittent chest pain and palpitations for quite some time now but did not think anything of it. She denies any prior diagnoses of heart disease or abnormal heart rhythms. She only takes medication for hypothyroidism. She denies any current chest pain dizziness, shortness of breath, or palpitations. Does state that she has been pretty fatigued over the past few months. Historical: - Allergies: 15:23 Morphine; ll1 - PMHx: 15:23 Hypothyroidism; ll1 - PSHx: 15:23 Thyroidectomy; gastric bypass; Cholecystectomy; tubal ligation; Tonsillectomy; ll1 - Immunization history:: Adult Immunizations up to date. - Infectious Disease History:: Denies. - Social history:: Smoking status: Patient denies any tobacco usage or history of. ROS: 15:38 Constitutional: Negative for fever, chills, and weight loss, sb4 15:38 All other systems are negative, Exam: 15:38 Constitutional: This is a well developed, well nourished patient who is awake, alert, sb4 and in no acute distress. Head/Face: Normocephalic, atraumatic. Eyes: Extra-ocular motions intact. Periorbital areas with no swelling, redness, or edema. ENT: Mucous membranes moist. Respiratory: Lungs have equal breath sounds bilaterally, clear to auscultation and percussion. No rales, rhonchi or wheezes noted. No increased work of breathing, no retractions or nasal flaring. Abdomen/GI: Soft, non-tender, no distension. Skin: Warm, dry with normal turgor. Normal color with no rashes, no lesions, and no evidence of cellulitis. 15:38 Cardiovascular: Rate: tachycardic, Rhythm: irregularly irregular, Vital Signs: 15:24 BP 178 / 94; Pulse 108; Resp 16; Temp 97.8; Pulse Ox 98% on R/A; Weight 72.57 kg; ll1 Height 5 ft. 6 in. ; Pain 0/10; 17:00 BP 158 / 101; Pulse 109; Resp 18; Pulse Ox 100% on R/A; mb9 17:35 BP 170 / 85; Pulse 105; Resp 18; Pulse Ox 100% on R/A; mb9 15:24 Body Mass Index 25.82 (72.57 kg, 167.64 cm) ll1 15:24 Pain Scale: Adult ll1 MDM: 15:18 Patient medically screened. sb4 17:10 Data reviewed: vital signs, nurses notes, lab test result(s), EKG, radiologic studies, sb4 and as a result, I will discharge patient. Consideration of Admission/Observation Patient was admitted/placed on observation. Management of patient was discussed with the following: Table Worker Packager: adi [place] patient started on metoprolol 25 mg BID and Eliquis 5 mg BID and is okay with outpatient follow up.. 17:11 Counseling: I had a detailed discussion with the patient and/or guardian regarding the sb4 historical points, exam findings, and any diagnostic results supporting the discharge/admit diagnosis, the presence of at least one elevated blood pressure reading (>120/80) during this emergency department visit, lab results, radiology results, the need for outpatient follow up, a heavy equipment diesel mechanic, to return to the emergency department if symptoms worsen or persist or if there are any questions or concerns that arise at home. 02/24 15:35 Order name: Basic Metabolic Panel; Complete Time: 16:18 sb4 02/24 15:35 Order name: CBC with Diff; Complete Time: 15:57 sb4 02/24 15:35 Order name: LFT's; Complete Time: 16:18 sb4 02/24 15:35 Order name: Magnesium; Complete Time: 16:18 sb4 02/24 15:35 Order name: NT PRO-BNP; Complete Time: 16:18 sb4 02/24 15:35 Order name: PT-INR; Complete Time: 15:54 sb4 02/24 15:35 Order name: Troponin HS; Complete Time: 16:18 sb4 02/24 15:35 Order name: TSH; Complete Time: 16:18 sb4 02/24 15:35 Order name: XRAY Chest (1 view) sb4 02/24 15:35 Order name: Cardiac monitoring; Complete Time: 15:42 sb4 02/24 15:35 Order name: EKG - Nurse/Tech; Complete Time: 15:42 sb4 02/24 15:35 Order name: IV Saline Lock; Complete Time: 15:42 sb4 02/24 15:35 Order name: Labs collected and sent; Complete Time: 15:42 sb4 02/24 15:35 Order name: O2 Per Protocol; Complete Time: 15:42 sb4 02/24 15:35 Order name: O2 Sat Monitoring; Complete Time: 15:42 sb4 EC:35 Rate is 108 beats/min. Rhythm is irregularly irregular, A fib. QRS interval is normal sb4 at 82 msec. QT interval is normal at 324 msec. No Q waves. T waves are Normal. No ST changes noted. Clinical impression: Atrial Flutter. Interpreted by me. Reviewed by me. Administered Medications: 17:34 Drug: Eliquis PO 5 mg PO once Route: PO; mb9 17:46 Follow up: Response: No adverse reaction mb9 17:35 Drug: Metoprolol PO 25 mg PO once Route: PO; mb9 17:46 Follow up: Response: No adverse reaction mb9 Disposition: 20:03 Co-signature as Attending Physician, Saji Salguero MD I reviewed the patient's care rn provided by the Advanced Practice Provider and agree with the diagnosis and treatment plan. Disposition Summary: 02/25/24 17:12 Discharge Ordered Notes: Location: Home sb4 Problem: an ongoing problem sb4 Symptoms: have improved sb4 Condition: Stable sb4 Diagnosis - Unspecified atrial fibrillation sb4 Followup: sb4 - With: Alberto Domínguez MD - When: 2 - 3 days - Reason: Recheck today's complaints, Re-evaluation by your physician Discharge Instructions: - Discharge Summary Sheet sb4 - Atrial Fibrillation sb4 Forms: - Patient Portal Instructions sb4 - Leadership Thank You Letter sb4 Prescriptions: - Eliquis 5 mg Oral tablet - take 1 tablet ORAL route every 12 hours; 60 tablet; Refills: 0, Product sb4 Selection Permitted - Metoprolol Tartrate 25 mg Oral tablet - take 1 tablet ORAL route every 12 hours with a meal; 60 tablet; Refills: 0, sb4 Product Selection Permitted Signatures: Dispatcher [employer] EDMS Saji Salguero MD MD rn Lewis, Lynsay, RN RN ll1 Syl Guillen, PA-C PA-C sb4 Sonya Zayas RN RN mb9 Corrections: (The following items were deleted from the chart) 15:35 15:35 BASIC METABOLIC PANEL+C.LAB.BRZ ordered. EDMS EDMS 15:35 15:35 CBC+H.LAB.BRZ ordered. EDMS EDMS 15:35 15:35 HEPATIC FUNCTION+C.LAB.BRZ ordered. EDMS EDMS 15:35 15:35 MAGNESIUM+C.LAB.BRZ ordered. EDMS EDMS 15:35 15:35 PROBNP+C.LAB.BRZ ordered. EDMS EDMS 15:36 15:35 PROTIME (+INR)+COAG.LAB.BRZ ordered. EDMS EDMS 15:36 15:35 Troponin High Sensitivity+C.LAB.BRZ ordered. EDMS EDMS 15:36 15:35 THYROID STIMULAT HORMONE+C.LAB.BRZ ordered. EDMS EDMS 15:36 15:36 Chest Single View+RAD.RAD.BRZ ordered. EDMS EDMS
--- NOTE | 2024-02-25 17:12 | ER ---
Nurse's Notes [facility] Name: Mayuri Barkley Age: 73 yrs Sex: Female : 1950 Arrival Date: 02/25/2024 Time: 15:09 Bed 14 Private MD: Diagnosis: Unspecified atrial fibrillation Presentation: 02/24 15:24 Chief complaint: Patient states: During her wellness visit her EKG showed A fib. Sent ll1 for evaluation. Chest feels "funny" off/on for a few months. Noticed some "fluttering in my chest.". Coronavirus screen: Client denies travel out of the [place] in the last 14 days. At this time, the client does not indicate any symptoms associated with coronavirus-19. Ebola Screen: Patient denies travel to an Ebola-affected area in the 21 days before illness onset. Initial Sepsis Screen: Does the patient meet any 2 criteria? No. Patient's initial sepsis screen is negative. Does the patient have a suspected source of infection? No. Patient's initial sepsis screen is negative. Risk Assessment: Do you want to hurt yourself or someone else? Patient reports no desire to harm self or others. Onset of symptoms was November 29, 2023. 15:24 Method Of Arrival: Ambulatory ll1 15:24 Acuity: SANDY 3 ll1 Triage Assessment: 15:26 General: Appears uncomfortable, Behavior is calm, cooperative, appropriate for age. ll1 Pain: Denies pain. Cardiovascular: Reports chest pain, fatigue, palpitations. Historical: - Allergies: 15:23 Morphine; ll1 - PMHx: 15:23 Hypothyroidism; ll1 - PSHx: 15:23 Thyroidectomy; gastric bypass; Cholecystectomy; tubal ligation; Tonsillectomy; ll1 - Immunization history:: Adult Immunizations up to date. - Infectious Disease History:: Denies. - Social history:: Smoking status: Patient denies any tobacco usage or history of. Screenin:27 [facility] ED Fall Risk Assessment (Adult) History of falling in the last 3 months, mb9 including since admission No falls in past 3 months (0 pts) Confusion or Disorientation No (0 pts) Intoxicated or Sedated No (0 pts) Impaired Gait No (0 pts) Mobility Assist Device Used No (0 pt) Altered Elimination No (0 pt) Score/Fall Risk Level 0 - 2 = Low Risk Oriented to surroundings, Maintained a safe environment, Educated pt \\T\\ family on fall prevention, incl call for assistance when getting out of bed. Abuse screen: Denies threats or abuse. Nutritional screening: No deficits noted. Tuberculosis screening: No symptoms or risk factors identified. Assessment: 15:39 General: Appears in no apparent distress. Behavior is calm, cooperative. Pain: mb9 Complains of pain in chest Quality of pain is described as throbbing. Neuro: Dinero Agitation-Sedation Scale (RASS): 0 - Alert and Calm Level of Consciousness is awake, alert, obeys commands, Oriented to person, place, time, situation, Appropriate for age. Neuro: Reports weakness. Cardiovascular: Reports chest pain, fatigue, palpitations. Respiratory: Airway is patent Respiratory effort is even, unlabored, Respiratory pattern is regular, symmetrical. GI: No signs and/or symptoms were reported involving the gastrointestinal system. : No signs and/or symptoms were reported regarding the genitourinary system. EENT: No signs and/or symptoms were reported regarding the EENT system. Derm: Skin is pink, warm \\T\\ dry. Musculoskeletal: Range of motion: intact in all extremities. 17:00 Reassessment: No changes from previously documented assessment. Patient and/or family mb9 updated on plan of care and expected duration. Pain level reassessed. Patient is alert, oriented x 3, equal unlabored respirations, skin warm/dry/pink. 17:36 Reassessment: D/C pending medication administration wait time. mb9 Vital Signs: 15:24 BP 178 / 94; Pulse 108; Resp 16; Temp 97.8; Pulse Ox 98% on R/A; Weight 72.57 kg; ll1 Height 5 ft. 6 in. ; Pain 0/10; 17:00 BP 158 / 101; Pulse 109; Resp 18; Pulse Ox 100% on R/A; mb9 17:35 BP 170 / 85; Pulse 105; Resp 18; Pulse Ox 100% on R/A; mb9 15:24 Body Mass Index 25.82 (72.57 kg, 167.64 cm) ll1 15:24 Pain Scale: Adult ll1 ED Course: 15:11 Patient arrived in ED. mr 15:12 Syl Guillen PA-C is PHCP. sb4 15:12 Saji Salguero MD is Attending Physician. sb4 15:16 Arm band placed on Patient placed in an exam room, on a stretcher. ll1 15:26 Triage completed. ll1 15:26 Sonya Zayas, RN is Primary Nurse. mb9 15:27 Placed in gown. Bed in low position. Call light in reach. Side rails up X 1. Provided mb9 Education on: press call light if needing anything. Client placed on continuous cardiac and pulse oximetry monitoring. NIBP monitoring applied. air traffic control specialist center on. 15:42 No provider procedures requiring assistance completed. Initial lab(s) drawn, by me, glendy sent to lab. EKG done, by ED staff, reviewed by Syl Guillen PA-C. Inserted saline lock: 22 gauge in right antecubital area, using aseptic technique. Blood collected. Flushed with 10 mL NS. 16:33 XRAY Chest (1 view) In Process Unspecified. EDWV 17:11 Alberto Domínguez MD is Referral Physician. sb4 17:35 IV discontinued, intact, bleeding controlled, No redness/swelling at site. Pressure mb9 dressing applied. Administered Medications: 17:34 Drug: Eliquis PO 5 mg PO once Route: PO; mb9 17:46 Follow up: Response: No adverse reaction mb9 17:35 Drug: Metoprolol PO 25 mg PO once Route: PO; mb9 17:46 Follow up: Response: No adverse reaction mb9 Medication: 15:27 VIS not applicable for this client. mb9 Outcome: 17:12 Discharge ordered by . sb4 17:35 Discharged to home ambulatory, mb9 17:35 Condition: stable 17:35 Discharge instructions given to patient, Instructed on discharge instructions, follow up and referral plans. Demonstrated understanding of instructions, follow-up care, medications, Prescriptions given X 2, 17:46 Patient left the ED. mb9 Signatures: Dispatcher [employer] [facility] Sonya Mathew, Rajeev Silveira, RN RN [email or web address] Syl Guillen PA-C PA-C sb4 Sonya Zayas, JUSTIN RN [email or web address]
[2024-02-25] MEDS ORDERED: METOPROLOL TAR 25 MG TAB ONE (17:29)
[2024-02-25] MEDS ORDERED: APIXABAN 5 MG TABLET ONE (17:29)
[2024-02-25 17:55] VITALS: TEMP 97.8
[2024-02-25 18:05] VITALS: O2SAT 100
[2024-02-25 18:10] VITALS: BP 170/85
== END 2024-02-25 17:46 | disposition home or self-care (01) ==
LOC: ER 15:09
DX: I48.91 Unspecified atrial fibrillation (principal); E03.9 Hypothyroidism, unspecified
CPT/HCPCS: 36415; 71045; 80048; 80076; 83735; 83880; 84443; 84484; 85025; 85610